=== PATIENT | female | born 1980 | race Caucasian/White ===

== ENCOUNTER 2016-12-03 21:18 | Emergency (ER) | payer MEDICAID ==
[~2016-12-03] VITALS: Ht 157.5 cm; Wt 70.0 kg
[2016-12-03 21:26] VITALS: BP 135/93; PULSE 98; RESP 18; TEMP 98; O2SAT 99
--- NOTE | 2016-12-03 21:41 | PD ---
HPI Chief Complaint: Psychiatric Symptoms Time Seen by Provider: 21:34 Travel History International Travel<30 days: No Contact w/Intl Traveler<30days: No Traveled to known affect area: No History of Present Illness HPI The patient was seen and examined in the presence of the nurse. This patient is 6-1/2 to 7 months and a frequent IV drug user. He does not have any psychiatric problem. She had a court ordered ex parte order for psychiatric evaluation and was therefore sent to [facility]. However when I found she was they said that they could not handle that and sent her to the emergency room. She has no physical complaints. She has no psychiatric complaints. She admits readily that she is a drug user and says she would like to quit for the sake of her baby. She buys Dilaudid off the street and crutches and an injects it. Denies fever. Symptoms severity is mild. No alleviating factors. Duration is the entire . She does go to a care clinic in [place]. PFSH Past Medical History ?: Social History Alcohol Use: No Tobacco Use: No Substance Use: No Review of Systems General / Constitutional: No: Fever Eyes: No: Visual changes HENT: No: Headaches Cardiovascular: No: Chest Pain or Discomfort Respiratory: No: Shortness of Breath Gastrointestinal: No: Abdominal Pain Genitourinary: No: Dysuria Musculoskeletal: No: Pain Skin: No Rash Neurologic: No: Weakness Psychiatric: Positive: Substance Abuse, No: Depression Endocrine: No: Polydipsia Hematologic/Lymphatic: No: Easy Bruising Physical Exam Narrative GENERAL: Well-nourished, well-developed patient in no apparent distress. SKIN: Focused skin assessment reveals no rash. Skin is Warm and dry. Her hands and arms are covered in track santo and nodules that are picked at HEAD: Atraumatic. Normocephalic. EYES: Pupils equal and round. No scleral icterus. No injection or drainage. ENT: No nasal bleeding or discharge. Mucous membranes pink and moist. NECK: Trachea midline. No JVD. CARDIOVASCULAR: Regular rate and rhythm. No murmur appreciated. RESPIRATORY: No accessory muscle use. Clear to auscultation. Breath sounds equal bilaterally. GASTROINTESTINAL: Abdomen soft, gravid uterus is nontender, nondistended. Hepatic and splenic margins not palpable. MUSCULOSKELETAL: No obvious deformities. No clubbing. No cyanosis. No edema. NEUROLOGICAL: Awake and alert. No obvious cranial nerve deficits. Motor grossly within normal limits. Normal speech. PSYCHIATRIC: Appropriate mood and affect; insight and judgment poor. Data Data Last Documented VS Vital Signs Date Time Temp Pulse Resp B/P Pulse Ox O2 Delivery O2 Flow Rate FiO2 12/03/16 22:31 78 12/03/16 21:26 98.0 18 135/93 99 Orders Iv Access Insert/Monitor (12/03/16 21:34) Complete Blood Count With Diff (12/03/16 21:34) Basic Metabolic Panel (Bmp) (12/03/16 21:34) Psych Screen (12/03/16 21:34) Drug Screen, Random Urine (12/03/16 21:34) Alcohol (Ethanol) (12/03/16 21:34) Heart Tones (12/03/16 21:34) Labs Laboratory Tests Test 12/03/16 21:45 White Blood Count 7.7 TH/MM3 Red Blood Count 3.77 MIL/MM3 Hemoglobin 9.9 GM/DL Hematocrit 29.8 % Mean Corpuscular Volume 79.0 FL Mean Corpuscular Hemoglobin 26.2 PG Mean Corpuscular Hemoglobin 33.1 % Concent Red Cell Distribution Width 14.1 % Platelet Count 338 TH/MM3 Mean Platelet Volume 8.4 FL Neutrophils (%) (Auto) 68.6 % Lymphocytes (%) (Auto) 21.0 % Monocytes (%) (Auto) 8.8 % Eosinophils (%) (Auto) 1.4 % Basophils (%) (Auto) 0.2 % Neutrophils # (Auto) 5.3 TH/MM3 Lymphocytes # (Auto) 1.6 TH/MM3 Monocytes # (Auto) 0.7 TH/MM3 Eosinophils # (Auto) 0.1 TH/MM3 Basophils # (Auto) 0.0 TH/MM3 CBC Comment DIFF FINAL Differential Comment Sodium Level 138 MEQ/L Potassium Level 3.7 MEQ/L Chloride Level 103 MEQ/L Carbon Dioxide Level 27.4 MEQ/L Anion Gap 8 MEQ/L Blood Urea Nitrogen 9 MG/DL Creatinine 0.53 MG/DL Estimat Glomerular Filtration 131 ML/MIN Rate Random Glucose 84 MG/DL Calcium Level 8.5 MG/DL Urine Opiates Screen POS Urine Barbiturates Screen NEG Urine Amphetamines Screen POS Urine Benzodiazepines Screen NEG Urine Cocaine Screen NEG Urine Cannabinoids Screen NEG Ethyl Alcohol Level LESS THAN 3 MG/DL MDM Medical Decision Making Medical Screen Exam Complete: Yes Emergency Medical Condition: Yes Medical Record Reviewed: Yes Differential Diagnosis Polysubstance abuse, drug use, Narrative Course I have reviewed the patient's electronic medical record. IV placed CBC shows minor anemia otherwise normal Metabolic profile is normal Alcohol level is negative Urine drug screen positive for amphetamine and opiate heart tones are 120s to 130s and regular I've ordered psychiatric screening as the patient comes in under an ex parte act. However she doesn't have any psychiatric problems. It sounds like she needs drug detox but since she is the detox Center will not take her. I don't sense any emergency that needs to be addressed tonight. This is been going on for the entirety of her and long before that. Possibly case management will be able to figure out where to refer her for detox that takes women. Patient is is medically stable as I can make her now. She is going to get her psychiatric evaluation and they will disposition her after that. We have discussed with case management. Diagnosis Primary Impression: IV drug abuse complicating Jamar De MD Dec 03, 2016 21:41
[2016-12-03 22:12] LABS: AUTOMATED NEUTROPHIL # 5.3 TH/MM3 (1.8-7.7); BASOPHIL % 0.2 % (0.0-2.0); EOSINOPHIL # 0.1 TH/MM3 (0-0.4); EOSINOPHIL % 1.4 % (0.0-4.0); HEMATOCRIT 29.8 % (35.0-46.0); HEMO FLAGS DIFF FINAL; LYMPHOCYTE # 1.6 TH/MM3 (1.0-4.8); MEAN CORPUSCULAR HEMOGLOBIN 26.2 PG (27.0-34.0); MEAN CORPUSCULAR HGB CONC 33.1 % (32.0-36.0); MONO % 8.8 % (0.0-8.0); NEUT % 68.6 % (16.0-70.0); PLATELET COUNT 338 TH/MM3 (150-450); RED BLOOD COUNT 3.77 MIL/MM3 (4.00-5.30); RED CELL DISTRIBUTION WIDTH 14.1 % (11.6-17.2); WHITE BLOOD COUNT 7.7 TH/MM3 (4.0-11.0)
[2016-12-03 22:20] LABS: AMPHETAMINE, URINE POS (NEG); BARBITURATES, URINE NEG (NEG); COCAINE, URINE NEG (NEG)
[2016-12-03 22:31] VITALS: PULSE 78
[2016-12-03 22:35] LABS: ANION GAP 8 MEQ/L (5-15); BICARBONATE 27.4 MEQ/L (21.0-32.0); BLOOD UREA NITROGEN 9 MG/DL (7-18); CHLORIDE 103 MEQ/L (98-107); GLOMERULAR FILTRATION RATE 131 ML/MIN (>89); POTASSIUM 3.7 MEQ/L (3.5-5.1); SODIUM (NA) 138 MEQ/L (136-145)
[2016-12-04 08:08] VITALS: BP 119/82; PULSE 80; RESP 19; O2SAT 99
[2016-12-04 11:41] VITALS: BP 115/82; PULSE 72; RESP 18; O2SAT 99
--- NOTE | 2016-12-04 12:56 | PD ---
History of Present Illness Chief Complaint: Psychiatric Symptoms Time Seen by Provider: 12:35 Travel History International Travel<30 Days: No Contact w/Intl Traveler<30days: No Known affected area: No Legal Status Legal Status: Ex Parte History of Present Illness: History of Present Illness HPI The patient is a 36 year old female with history of substance use disorder who is 6-1/2 to 7 months and a frequent IV drug user. She is under an ex parte order for psychiatric evaluation and was therefore sent to [facility]. However [facility] sent the patient to [facility] for psychiatric evaluation since the patient is and out of their scope of practice. Ed documentation reviewed and included here in this report " She has no physical complaints. She has no psychiatric complaints. She admits readily that she is a drug user and says she would like to quit for the sake of her baby. She buys Dilaudid off the street and crutches and an injects it. Denies fever. Symptoms severity is mild. No alleviating factors. Duration is the entire . She does go to a care clinic in [place]." Seen. Chart reviewed. Current toxicology is positive for amphetamines as well as opiates. Patient is alert, oriented x 4. Calm and cooperative. her speech is clear , logical, coherent, of normal tone and rate. There is no pressured speech. There is no indication that she is responding to internal stimuli and she denies any hallucinations. No delusions or paranoia. She denies any suicidal or homicidal ideation, academic intern or plan. She denies depression or anxiety symptoms. She admits to hx of substance abuse with preference for opiates as well as amphetamines. She has been using during her whole . Patient is aware of potential negative effects of her continued use of substances on her unborn child. She has been receiving care and verbalizes her desire to parent this child. States " This is my boy. " She has a 15 year old daughter. Patient is requesting discharge. She tells me she has contacted [facility] and according to her report they cannot refuse her admission because she is . She plans on having her mother take her there if she is discharged. Telephone call to her mother Fabiola at [phone]. Mother reports that she will not be picking her up and that she cannot return to her homeif she is discharged. Mother was under the impression that she was under a [place] Act as the patient's main dx is substance abuse. . TC to Jose Juan Koenig court liason at [facility] [phone]. Message left for him to contact [facility]. TC to Jose Juan Koenig again. Message left. I spoke with [facility] bilingual patient support caseworker Fabby xiong available resources for this patient . States no available resources for this patient. TC to Darlene at [facility]. Patient can present to detox today for evaluation today. [facility] does provide detox for patients and she just needs to present to their lobby for an evaluation but she needs to bring a copy of ultrasound with her. I have informed RN on unit re need to obtain ultrasound. Plan is to have patient transported to [facility] via [facility] transportation to facilitate her getting to [facility]. I have informed Keyonna, ED charge regarding disposition. PFSH Past Medical History Anxiety: Yes Depression: Yes ?: Psychiatric History Psychiatric History Hx Psychiatric Treatment: None reported by kendal History of Inpatient Treatment: No Guns or firearms in home: No Social History Single female. Had been living with her mother Hx Alcohol Use: No Hx Tobacco Use: No Hx Substance Use: No Substance Use Type: Amphetamines-Stimulants, Synth Opiates-Pain Pills Hx of Substance Use Treatment: Yes ([facility], drug court.) Family Psychiatric History Unknown Review of Systems Except as stated in HPI: all other systems reviewed are Neg Exam Alert: Yes [place]: Person (ox4) Mood: Calm Affect: Appropriate Speech: Clear, Logical Eye Contact: Normal Memory Intact: Comment (No impairmetn) Hallucinations: Other (negative) Delusions: No Suicidal: Ideation (denies any) Homicidal: Ideation (denies any) Insight/Judgement Poor. Poor [facility] Medical Decision Making Medical Record Reviewed: Yes Assessment/Plan 36 year old female who is currently and has a hx of substance use disorder. Has been abusing opiates as well as amphetamines during her and presents today under an ex parte. The patient does not meet criteria for inpatient psychiatric treatment. She needs detoxification services which we do not provide here at [facility]. I have contacted [facility] and patient needs to present self there for evaluation. Orders Iv Access Insert/Monitor (12/03/16 21:34) Complete Blood Count With Diff (12/03/16 21:34) Basic Metabolic Panel (Bmp) (12/03/16 21:34) Psych Screen (12/03/16 21:34) Drug Screen, Random Urine (12/03/16 21:34) Alcohol (Ethanol) (12/03/16 21:34) Heart Tones (12/03/16 21:34) Diet Regular Basic (12/04/16 Lunch) Results Vital Signs Date Time Temp Pulse Resp B/P Pulse Ox O2 Delivery O2 Flow Rate FiO2 12/04/16 11:41 72 18 115/82 99 Room Air 12/04/16 08:08 80 19 119/82 99 Room Air 12/03/16 22:31 78 12/03/16 21:26 98.0 98 18 135/93 99 Laboratory Tests Test 12/03/16 21:45 White Blood Count 7.7 Red Blood Count 3.77 Hemoglobin 9.9 Hematocrit 29.8 Mean Corpuscular Volume 79.0 Mean Corpuscular Hemoglobin 26.2 Mean Corpuscular Hemoglobin 33.1 Concent Red Cell Distribution Width 14.1 Platelet Count 338 Mean Platelet Volume 8.4 Neutrophils (%) (Auto) 68.6 Lymphocytes (%) (Auto) 21.0 Monocytes (%) (Auto) 8.8 Eosinophils (%) (Auto) 1.4 Basophils (%) (Auto) 0.2 Neutrophils # (Auto) 5.3 Lymphocytes # (Auto) 1.6 Monocytes # (Auto) 0.7 Eosinophils # (Auto) 0.1 Basophils # (Auto) 0.0 CBC Comment DIFF FINAL Differential Comment Sodium Level 138 Potassium Level 3.7 Chloride Level 103 Carbon Dioxide Level 27.4 Anion Gap 8 Blood Urea Nitrogen 9 Creatinine 0.53 Estimat Glomerular Filtration 131 Rate Random Glucose 84 Calcium Level 8.5 Urine Opiates Screen POS Urine Barbiturates Screen NEG Urine Amphetamines Screen POS Urine Benzodiazepines Screen NEG Urine Cocaine Screen NEG Urine Cannabinoids Screen NEG Ethyl Alcohol Level LESS THAN 3 Diagnosis Primary Impression: Substance abuse Additional Impression: IV drug abuse complicating Psychiatrically Cleared: Yes Problem Qualifiers Aspen Jernigan Dec 04, 2016 12:56
== END 2016-12-04 16:00 ==
LOC: NEPC 21:18
DX: O99.320 Drug use complicating pregnancy, unspecified trimester (principal)
CPT/HCPCS: 80048; 80307; 85025; 99283

== ENCOUNTER 2016-12-07 18:17 | Emergency (ER) | payer MEDICAID ==
[~2016-12-07] VITALS: Ht 157.5 cm; Wt 68.0 kg
--- NOTE | 2016-12-07 19:40 | PD ---
HPI Chief Complaint viability Date Seen: Dec 07, 2016 Time Seen: 19:36 Travel History International Travel<30 Days: No Contact w/Intl Traveler<30Days: No Known Affected Area: No History of Present Illness HPI 36-year-old who is at 33 weeks gestation who is here with a counselor in preparation to enter [facility] for substance abuse. Patient uses IV Dilaudid and has abuse this medication throughout her . Patient is seen at a clinic and they'll time and plans to continue her care there. He has no complications of . Para: 1 : 3 History Past Medical History Medical History: Denies Significant Hx Obstetric History Obstetric History Spontaneous vaginal delivery Past Surgical History Surgical History: No Previous Surgery Family History Family History: Negative Social History Alcohol Use: No Tobacco Use: No Substance Abuse: Yes Review of Systems Except as stated in HPI: all other systems reviewed are Neg Physical Exam Narrative GENERAL: Well-nourished, well-developed patient. SKIN: Warm and dry. HEAD: Normocephalic and atraumatic. ABDOMEN/GI: Abdomen soft, non-tender, bowel sounds present, no rebound, no guarding Gravid to [33-] weeks size Fundal Height: [-] GENITOURINARY: Deferred External Genitalia: intact and normal in appearance BUS glands: [-] Cervix: [-] Dilatation: [-] Effacement: [-] Station: [-] Presentation: [-] Membranes: [intact or ruptured] Uterine Contractions: [-] FHT's: Category: [1-] Baseline: [140-] Reactive: [-Reactive] Variability: [Reactive-] Decels: [Absent-] EXTREMITIES: No cyanosis or edema. BACK: Nontender without obvious deformity. No CVA tenderness. NEUROLOGICAL: Awake and alert. Motor and sensory grossly within normal limits. Five out of 5 muscle strength in all muscle groups. Normal speech. Data Data Vital Signs Reviewed: Yes MDM Plan 36-year-old who is at 33 weeks gestation Category 1 heart rate tracing IV substance abuse going to [facility] Diagnosis Diagnosis: Primary Impression: Substance abuse affecting in third trimester, antepartum Additional Impression: 33 weeks gestation of Disposition: DISCHARGE HOME Christina Gamez MD Dec 07, 2016 19:40
[2016-12-28] MEDS ORDERED: CITA10TA4 PO ×2 (10:47→11:09)
[2016-12-28] MEDS ORDERED: FAMO20TA2 PO ×2 (10:47→11:09)
[2016-12-28] MEDS ORDERED: PROM25TA10 PO ×2 (10:47→11:09)
[2016-12-28] MEDS ORDERED: CITA20TA4 PO ×2 (10:47→11:09)
[2016-12-28] MEDS ORDERED: PREN1CAP20 PO ×2 (10:49→11:10)
== END 2016-12-07 20:14 | disposition home or self-care (01) ==
LOC: HOBED 18:17
DX: O26.893 Other specified pregnancy related conditions, third trimester (principal); F19.10 Other psychoactive substance abuse, uncomplicated; Z3A.33 33 weeks gestation of pregnancy
CPT/HCPCS: 99281

== ENCOUNTER 2016-12-09 00:57 | Emergency (ER) | payer MEDICAID ==
[~2016-12-09] VITALS: Ht 167.6 cm; Wt 70.0 kg
[2016-12-09 01:15] VITALS: BP 118/69; PULSE 80; RESP 20; TEMP 97.6; O2SAT 99
[2016-12-09] MEDS ORDERED: SODIUM CHLORIDE 0.9% FLUSH 10 ML FLUSH IVF PRN (01:30)
[2016-12-09] MEDS ORDERED: SODIUM CHLOR 0.9% 1000 ML INJ 1,000 ML IV ONE (01:30)
[2016-12-09] MEDS ORDERED: ONDANSETRON HCL 4 MG/2 ML VIAL IV PUSH ONE (01:30)
[2016-12-09 01:49] VITALS: BP 118/69; PULSE 80; RESP 20; TEMP 97.6; O2SAT 99
[2016-12-09 01:58] LABS: AUTOMATED NEUTROPHIL # 6.6 TH/MM3 (1.8-7.7); BASOPHIL % 0.5 % (0.0-2.0); EOSINOPHIL % 0.3 % (0.0-4.0); HEMATOCRIT 35.2 % (35.0-46.0); HEMO FLAGS DIFF FINAL; LYMPH % 21.2 % (9.0-44.0); MEAN CELL VOLUME 77.8 FL (80.0-100.0); MEAN CORPUSCULAR HEMOGLOBIN 25.6 PG (27.0-34.0); MEAN CORPUSCULAR HGB CONC 32.9 % (32.0-36.0); PLATELET COUNT 417 TH/MM3 (150-450); RED BLOOD COUNT 4.52 MIL/MM3 (4.00-5.30); RED CELL DISTRIBUTION WIDTH 14.4 % (11.6-17.2); WHITE BLOOD COUNT 9.4 TH/MM3 (4.0-11.0)
[2016-12-09 02:12] VITALS: BP 112/74; PULSE 78; RESP 18; O2SAT 99
[2016-12-09 02:42] LABS: ALT (GPT) 61 U/L (10-53); ANION GAP 14 MEQ/L (5-15); AST (GOT) 64 U/L (15-37); BICARBONATE 22.7 MEQ/L (21.0-32.0); BLOOD UREA NITROGEN 7 MG/DL (7-18); CHLORIDE 103 MEQ/L (98-107); GLOMERULAR FILTRATION RATE 108 ML/MIN (>89); POTASSIUM 3.6 MEQ/L (3.5-5.1); SODIUM (NA) 140 MEQ/L (136-145)
[2016-12-09 02:44] LABS: ALKALINE PHOSPHATASE 139 U/L (45-117); TOTAL BILIRUBIN ADULT 1.4 MG/DL (0.2-1.0)
--- NOTE | 2016-12-09 02:44 | PD ---
HPI Chief Complaint: Medical Clearance Time Seen by Provider: 02:34 Travel History International Travel<30 days: No Contact w/Intl Traveler<30days: No Traveled to known affect area: No History of Present Illness HPI PT IS 33 WEEKS GESTATION, WAS AT THE [facility] GETTING DETOX WAS SENT HERE FOR POSSIBLE WITHDRAWAL SYMPTOMS, PER THE [facility] STAFF IF PT IS MEDICALLY CLEARED SHE WILL BE ACCEPTED BY THE [facility] AGAIN....PT DENIES FEELING NERVOUS/PALPITATIONS/ TREMBLING AT THIS TIME ONLY C/O NAUSEA WITHOUT ANY BOWERS/CP/ABD PAIN/VAG BLEED/V/D AT THIS TIME PFSH Past Medical History Medical History: Denies Significant Hx Anxiety: Yes Depression: Yes Diminished Hearing: No ?: LMP: 02/28/2016 : 3 Para: 1 Miscarriage: 1 Past Surgical History Surgical History: No Previous Surgery Social History Alcohol Use: No Tobacco Use: No Substance Use: No (past IV drug use. Dilaudid 2 days clean) Allergies-Medications (Allergen,Severity, Reaction): Coded Allergies: No Known Allergies (Unverified , 12/09/16) Reported Meds & Prescriptions Reported Meds & Active Scripts Active No Active Prescriptions or Reported Medications Review of Systems Except as stated in HPI: all other systems reviewed are Neg Gastrointestinal: Positive: Nausea Physical Exam Narrative GENERAL: SKIN: Warm and dry. HEAD: Atraumatic. Normocephalic. EYES: Pupils equal and round. No scleral icterus. No injection or drainage. ENT: No nasal bleeding or discharge. Mucous membranes pink and moist. NECK: Trachea midline. No JVD. CARDIOVASCULAR: Regular rate and rhythm. RESPIRATORY: No accessory muscle use. Clear to auscultation. Breath sounds equal bilaterally. GASTROINTESTINAL: Abdomen soft, GRAVID AND C/W >30WEEKS GEST. HIGH MUSCULOSKELETAL: Extremities without clubbing, cyanosis, or edema. No obvious deformities. NEUROLOGICAL: Awake and alert. No obvious cranial nerve deficits. Motor grossly within normal limits. Five out of 5 muscle strength in the arms and legs. Normal speech. PSYCHIATRIC: Appropriate mood. Data Data Last Documented VS Vital Signs Date Time Temp Pulse Resp B/P Pulse Ox O2 Delivery O2 Flow Rate FiO2 12/09/16 02:12 78 18 112/74 99 Room Air 12/09/16 01:49 97.6 Orders Complete Blood Count With Diff (12/09/16 01:18) Comprehensive Metabolic Panel (12/09/16 01:18) Urinalysis - C+S If Indicated (12/09/16 01:18) Iv Access Insert/Monitor (12/09/16 01:18) Psych Screen (12/09/16 01:18) Sodium Chloride 0.9% Flush (Ns Flush) (12/09/16 01:30) Drug Screen, Random Urine (12/09/16:18) Alcohol (Ethanol) (12/09/16 01:18) Salicylates (Aspirin) (12/09/16 01:18) Tylenol (Acetaminophen) (12/09/16 01:18) Sodium Chlor 0.9% 1000 Ml Inj (Ns 1000 M (12/09/16 01:30) Ondansetron Inj (Zofran Inj) (12/09/16 01:30) Metoclopramide Inj (Reglan Inj) (12/09/16 02:45) Labs Laboratory Tests Test 12/09/16 01:40 White Blood Count 9.4 TH/MM3 Red Blood Count 4.52 MIL/MM3 Hemoglobin 11.6 GM/DL Hematocrit 35.2 % Mean Corpuscular Volume 77.8 FL Mean Corpuscular Hemoglobin 25.6 PG Mean Corpuscular Hemoglobin 32.9 % Concent Red Cell Distribution Width 14.4 % Platelet Count 417 TH/MM3 Mean Platelet Volume 8.3 FL Neutrophils (%) (Auto) 70.0 % Lymphocytes (%) (Auto) 21.2 % Monocytes (%) (Auto) 8.0 % Eosinophils (%) (Auto) 0.3 % Basophils (%) (Auto) 0.5 % Neutrophils # (Auto) 6.6 TH/MM3 Lymphocytes # (Auto) 2.0 TH/MM3 Monocytes # (Auto) 0.8 TH/MM3 Eosinophils # (Auto) 0.0 TH/MM3 Basophils # (Auto) 0.0 TH/MM3 CBC Comment DIFF FINAL Differential Comment Sodium Level 140 MEQ/L Potassium Level 3.6 MEQ/L Chloride Level 103 MEQ/L Carbon Dioxide Level 22.7 MEQ/L Anion Gap 14 MEQ/L Blood Urea Nitrogen 7 MG/DL Creatinine 0.63 MG/DL Estimat Glomerular Filtration 108 ML/MIN Rate Random Glucose 90 MG/DL Calcium Level 9.2 MG/DL Total Bilirubin 1.4 MG/DL Aspartate Amino Transf 64 U/L (AST/SGOT) Alanine Aminotransferase 61 U/L (ALT/SGPT) Alkaline Phosphatase 139 U/L Total Protein 7.9 GM/DL Albumin 2.5 GM/DL Salicylates Level LESS THAN 1.7 MG/DL Acetaminophen Level LESS THAN 2.0 MCG/ML Ethyl Alcohol Level LESS THAN 3 MG/DL MDM Medical Decision Making Medical Screen Exam Complete: Yes Emergency Medical Condition: Yes Medical Record Reviewed: Yes Differential Diagnosis ELECTROLYTE ABNL V MED CLEARANCE Narrative Course CURRENTLY PATIENT IS NOT TACHYCARDIC/TACHYPNEIC/ NOR ALTERED MENTAL STATUS VSS, PT DOES NOT EXHIBIT E/O WITHDRAWAL AND IS RESTING/SLEEPING WITHOUT DIFFICULTY. WILL AWAIT MED CLEARANCE WORKUP IF NEGATIVE WILL RELEASE TO THE [facility] TO CONTINUE DETOX PROCESS. Diagnosis Primary Impression: MEDICAL CLEARANCE FOR THE [facility] Patient Instructions: General Instructions Scripts No Active Prescriptions or Reported Meds Disposition: 70 TRANSFER TO OTHER FACILITY Condition: Stable (TRANSFER TO THE [facility] FOR CONTINUED DETOX) David Potter MD Dec 09, 2016 02:43
[2016-12-09] MEDS ORDERED: METOCLOPRAMIDE HCL 10 MG/2 ML VIAL IV PUSH ONE (02:45)
[2016-12-09 02:46] LABS: ACETAMINOPHEN LESS THAN 2.0 MCG/ML (10.0-30.0)
[2016-12-28] MEDS ORDERED: CITA10TA4 PO ×2 (10:47→11:09)
[2016-12-28] MEDS ORDERED: FAMO20TA2 PO ×2 (10:47→11:09)
[2016-12-28] MEDS ORDERED: CITA20TA4 PO ×2 (10:47→11:09)
[2016-12-28] MEDS ORDERED: PROM25TA10 PO ×2 (10:47→11:09)
[2016-12-28] MEDS ORDERED: PREN1CAP20 PO ×2 (10:49→11:10)
== END 2016-12-09 05:18 | disposition short-term general hospital (02) ==
LOC: NEPC 00:57
DX: O99.323 Drug use complicating pregnancy, third trimester (principal); F41.9 Anxiety disorder, unspecified; F32.9 Major depressive disorder, single episode, unspecified; Z3A.33 33 weeks gestation of pregnancy
CPT/HCPCS: 80053; 80307; 85025; 96361; 96374; 96375; J2405; J2765; J7030

== ENCOUNTER 2016-12-09 12:26 | Inpatient (IN) | payer MEDICAID ==
[2016-12-09] VITALS (60 sets, daily range): BP systolic 131–139; BP diastolic 80–86; PULSE 61–90; RESP 20–27; TEMP 98.1–99.1
[2016-12-09] MEDS: SODIUM CHLORIDE 0.9% FLUSH 10 ML FLUSH IV FLUSH SCH ×2 (13:15→21:00)
[2016-12-09] MEDS ORDERED: SODIUM CHLORIDE 0.9% FLUSH 10 ML FLUSH IV FLUSH PRN (13:15)
--- NOTE | 2016-12-09 13:35 | HHI.HP ---
History & Physical H&P HPI Travel History International Travel<30 Days: No Contact w/Intl Traveler<30Days: No Known Affected Area: No History of Present Illness HPI This patient is a 36-year-old 2 para 1001 EDC is January 25, 2017 presently at 33 weeks and 2 days patient is presently a resident of the [facility] she was seen earlier in the emergency room for medical clearance for that program at that time she was having nausea and vomiting workup was done patient evaluated and she was discharged home. She returns with persistent nausea vomiting and now with watery diarrhea No rupture of membranes no vaginal bleeding the baby is active no contractions no pressure no cramping in her lower abdomen States the nausea and vomiting is persistent however she has not had any vomiting since being in the room over the past 20-30 minutes no episodes of diarrhea. Her care is in the [place] area with a Dr. Camejo however is moving to this area considering transfer of care History (Limited) History Past Medical History Narrative Medical No known drug allergies history of hypothyroidism no medication Obstetric History Obstetric History First baby born 2001 female weight 7 lbs. 6 oz. vaginal delivery uncomplicated Past Surgical History Surgical History: No Previous Surgery Family History Family History: Negative Social History Alcohol Use: No Tobacco Use: No Substance Abuse: Yes (drug of choice is IV Dilaudid over the past year and has used meth amphetamines she denies cocaine para 1 marijuana etc.) Allergies-Medications Allergies-Medications (Allergen,Severity, Reaction): Coded Allergies: No Known Allergies (Unverified , 12/09/16) Home Meds No Active Prescriptions or Reported Meds ROS Review of Systems General / Constitutional: Chills Gastrointestinal: Nausea, Vomiting, Diarrhea, Loss of Appetite Musculoskeletal: Cramping Psychiatric: Depression (by history) Physical Exam Physical Exam Narrative GENERAL: Well-nourished, well-developed patient. SKIN: Warm and dry. HEAD: Normocephalic and atraumatic. EYES: No scleral icterus. No injection or drainage. ENT: No nasal drainage noted. Mucous membranes pink. Airway patent. NECK: Supple, trachea midline. No JVD. CARDIOVASCULAR: Regular rate and rhythm without murmurs, gallops, or rubs. RESPIRATORY: Breath sounds equal bilaterally. No accessory muscle use. BREASTS: Bilateral exam showed no masses , no retractions, no nipple discharge. ABDOMEN/GI: Abdomen soft, non-tender, bowel sounds present, no rebound, no guarding Gravid to [-] weeks size Fundal Height: [-] GENITOURINARY: External Genitalia: intact and normal in appearance BUS glands: [-] Cervix: [-] Dilatation: [-] Effacement: [-] Station: [-] Presentation: [-] Membranes: [intact or ruptured] Uterine Contractions: [-] FHT's: Category: [-] Baseline: [-] Reactive: [-] Variability: [-] Decels: [-] EXTREMITIES: No cyanosis or edema. BACK: Nontender without obvious deformity. No CVA tenderness. NEUROLOGICAL: Awake and alert. Motor and sensory grossly within normal limits. Five out of 5 muscle strength in all muscle groups. Normal speech. Data Data Data Vital Signs Reviewed: Yes (blood pressures 121/83 temperature is 98.7 respiration 22 and pulse is 88) Orders Ob (2e) Additional Admit Info (12/09/16 13:14) Place In Observation (12/09/16 ) Diet Liquid (12/09/16 Lunch) Vital Signs (Adult) [id number] AWAKE (12/09/16 13:15) Heart (12/09/16 13:15) Activity Bed Rest With Brp (12/09/16 13:15) Complete Blood Count With Diff (12/09/16 13:15) Urinalysis - C+S If Indicated (12/09/16 13:15) Lactated Ringer's 1000 Ml Inj (Lr 1000 M (12/09/16 13:15) Sodium Chloride 0.9% Flush (Ns Flush) (12/09/16 13:15) Sodium Chloride 0.9% Flush (Ns Flush) (12/09/16 13:15) Ob/Psych Drug Screen, Urine (12/09/16 13:15) Comprehensive Metabolic Panel (12/09/16 13:15) Thyroid Stimulating Hormone (12/09/16 13:15) Hydroxyzine Pamoate (Vistaril) (12/09/16 13:15) Clonidine (Catapres) (12/09/16 13:15) Gabapentin (Neurontin) (12/09/16 18:00) Us Ob Pelvis >14 Wks Fetus (12/09/16 ) MDM MDM Medical Record Reviewed: Yes (records from earlier ultrasound reviewed) Interpretation(s) Intrauterine at 33 weeks and 2 days Not in labor Nausea vomiting and diarrhea Most likely secondary to drug withdrawal Advanced maternal age Mild dehydration History of hypothyroidism Plan Admit External monitoring CBC, CMP, lipase amylase, urinalysis, TSH Urine drug screen IV fluid hydration Vistaril 50 mg by mouth every 4 hours Clonidine 0.1 mg every 6 hours Gabapentin 400 mg by mouth 3 times a day Ultrasound with OB diagnostics for growth Will observe over the next 24 hours If improved will discharge back to the [facility] program in the a.m. Scripts No Active Prescriptions or Reported Meds Antonina Cosby MD Dec 09, 2016 13:34 Antonina Cosby MD Dec 09, 2016 13:35
[2016-12-09 15:53] LABS: BLOOD, URINE NEG (NEG); COMMENT (UR) CULT NOT INDICATED; CULTURE IF INDICATED CULT NOT INDICATED; GLUCOSE,URINE NEG (NEG); KETONE, URINE 150 mg/dL (NEG); MUCUS URINE FEW /lpf (OCC); NITRITE,URINE NEG (NEG); SQUAMOUS EPITHELIAL CELL URINE 1 /hpf (0-5); TRANSITIONAL EPI CELLS, URINE 2 /hpf; URINE COLOR DARK-YELLOW (YELLW/STRAW)
[2016-12-09 15:57] LABS: AMPHETAMINE, URINE NEG (NEG); BARBITURATES, URINE NEG (NEG)
[2016-12-09 16:10] LABS: COCAINE, URINE POS (NEG)
[2016-12-09 17:28] LABS: AUTOMATED NEUTROPHIL # 5.4 TH/MM3 (1.8-7.7); BASOPHIL % 0.3 % (0.0-2.0); EOSINOPHIL % 0.3 % (0.0-4.0); HEMATOCRIT 31.4 % (35.0-46.0); HEMO FLAGS DIFF FINAL; LYMPH % 24.7 % (9.0-44.0); LYMPHOCYTE # 2.1 TH/MM3 (1.0-4.8); MEAN CELL VOLUME 79.7 FL (80.0-100.0); MEAN CORPUSCULAR HEMOGLOBIN 25.6 PG (27.0-34.0); MEAN CORPUSCULAR HGB CONC 32.1 % (32.0-36.0); MONO % 10.4 % (0.0-8.0); NEUT % 64.3 % (16.0-70.0); PLATELET COUNT 365 TH/MM3 (150-450); RED BLOOD COUNT 3.93 MIL/MM3 (4.00-5.30); RED CELL DISTRIBUTION WIDTH 14.2 % (11.6-17.2); WHITE BLOOD COUNT 8.3 TH/MM3 (4.0-11.0)
[2016-12-09 17:48] LABS: ALT (GPT) 55 U/L (10-53); ANION GAP 9 MEQ/L (5-15); AST (GOT) 51 U/L (15-37); BICARBONATE 25.6 MEQ/L (21.0-32.0); BLOOD UREA NITROGEN 8 MG/DL (7-18); CHLORIDE 102 MEQ/L (98-107); GLOMERULAR FILTRATION RATE 98 ML/MIN (>89); POTASSIUM 3.6 MEQ/L (3.5-5.1); SODIUM (NA) 137 MEQ/L (136-145)
[2016-12-09] MEDS: LACTATED RINGER'S 1000 ML INJ 1,000 ML IV SCH (17:54)
[2016-12-09] MEDS: GABAPENTIN 400 MG CAP PO SCH (17:54)
[2016-12-09 17:58] LABS: ALKALINE PHOSPHATASE 111 U/L (45-117); TOTAL BILIRUBIN ADULT 1.3 MG/DL (0.2-1.0)
[2016-12-09] MEDS: cloNIDine HCL 0.1 MG TAB PO PRN (20:23)
[2016-12-09] MEDS ORDERED: ONDANSETRON HCL 4 MG/2 ML VIAL IV PUSH PRN (22:15)
[2016-12-10] VITALS (26 sets, daily range): BP systolic 114–126; BP diastolic 63–75; PULSE 60–84; RESP 20–24; TEMP 97.7–98.4; O2SAT 100
[2016-12-10] MEDS: CALCIUM CARBONATE 500 MG CHEWABLE TAB CHEW PRN ×9 (00:11→22:30)
[2016-12-10] MEDS: cloNIDine HCL 0.1 MG TAB PO PRN ×3 (02:28→19:59)
--- NOTE | 2016-12-10 07:06 | PD.OB.ANTE ---
Subjective Interval History Patient continues to have pain "all over" and had an episode of food-colored vomiting at midnight. She denies nausea this morning and wants to try breakfast. Antepartum ROS: Reports: movement normal, Denies: New complaints, Loss of fluid, Vaginal bleeding, Contractions Objective Vital Signs Vital Signs Date Time Temp Pulse Resp B/P Pulse Ox O2 Delivery O2 Flow Rate FiO2 12/10/16 02:36 20 12/10/16 02:35 70 12/10/16 02:33 98.4 20 12/10/16 02:32 68 126/75 12/10/16 02:30 70 12/10/16 02:25 69 12/10/16 02:20 73 12/10/16 02:15 74 12/10/16 02:10 77 12/10/16 02:05 75 12/10/16 02:00 84 12/09/16 22:55 63 12/09/16 22:50 61 12/09/16 22:45 80 12/09/16 22:40 64 12/09/16 22:35 72 12/09/16 22:30 64 12/09/16 22:25 75 12/09/16 22:20 79 12/09/16 22:20 20 12/09/16 22:18 72 133/86 12/09/16 22:05 79 12/09/16 22:00 64 12/09/16 19:24 98.1 12/09/16 18:40 69 12/09/16 18:40 69 12/09/16 18:35 76 12/09/16 18:35 76 12/09/16 18:30 77 12/09/16 18:30 78 12/09/16 18:25 76 12/09/16 18:25 79 12/09/16 18:20 74 12/09/16 18:20 76 12/09/16 18:15 78 12/09/16 18:15 77 12/09/16 18:10 77 12/09/16 18:00 78 12/09/16 18:00 78 12/09/16 17:55 73 12/09/16 17:55 71 12/09/16 17:53 24 12/09/16 17:53 71 139/85 12/09/16 17:52 98.6 12/09/16 17:50 78 12/09/16 17:50 75 12/09/16 17:45 80 12/09/16 17:45 81 12/09/16 17:40 77 12/09/16 17:35 85 12/09/16 17:35 84 12/09/16 17:30 82 12/09/16 17:30 81 12/09/16 17:25 77 12/09/16 17:25 78 12/09/16 17:20 78 12/09/16 17:20 78 12/09/16 17:15 77 12/09/16 17:15 76 12/09/16 17:10 76 12/09/16 17:10 70 12/09/16 17:05 71 12/09/16 17:05 70 12/09/16 17:00 73 12/09/16 17:00 74 12/09/16 16:55 81 12/09/16 16:55 81 12/09/16 16:50 80 12/09/16 16:50 80 12/09/16 16:45 66 12/09/16 16:45 68 12/09/16 16:40 62 12/09/16 16:40 62 12/09/16 16:38 99.1 12/09/16 16:37 27 12/09/16 16:35 70 135/80 12/09/16 16:35 65 12/09/16 16:30 86 12/09/16 16:15 78 12/09/16 16:10 81 12/09/16 16:05 82 12/09/16 16:00 83 12/09/16 15:55 80 12/09/16 15:50 80 12/09/16 15:45 79 12/09/16 15:40 79 12/09/16 15:35 87 12/09/16 15:30 80 12/09/16 15:25 78 12/09/16 15:20 87 12/09/16 14:40 75 12/09/16 14:39 20 12/09/16 14:38 98.6 12/09/16 14:38 76 131/85 12/09/16 14:35 75 12/09/16 14:30 81 12/09/16 13:40 90 Lab & Micro Results Test 12/09/16 12/09/16 14:23 17:07 Urine Color DARK-YELLOW Urine Turbidity HAZY Urine pH 7.0 Urine Specific Braggs 1.030 Urine Protein 30 mg/dL Urine Glucose (UA) NEG mg/dL Urine Ketones 150 mg/dL Urine Occult Blood NEG Urine Nitrite NEG Urine Bilirubin SMALL Urine Urobilinogen 4.0 MG/DL Urine Leukocyte Esterase TRACE Urine WBC 2 /hpf Urine Squamous Epithelial 1 /hpf Cells Urine Transitional Epithelial 2 /hpf Cells Urine Mucus FEW /lpf Microscopic Urinalysis Comment CULT NOT INDICATED Urine Opiates Screen NEG Urine Barbiturates Screen NEG Urine Amphetamines Screen NEG Urine Benzodiazepines Screen NEG Urine Cocaine Screen POS Urine Cannabinoids Screen NEG White Blood Count 8.3 TH/MM3 Red Blood Count 3.93 MIL/MM3 Hemoglobin 10.1 GM/DL Hematocrit 31.4 % Mean Corpuscular Volume 79.7 FL Mean Corpuscular Hemoglobin 25.6 PG Mean Corpuscular Hemoglobin 32.1 % Concent Red Cell Distribution Width 14.2 % Platelet Count 365 TH/MM3 Mean Platelet Volume 8.0 FL Neutrophils (%) (Auto) 64.3 % Lymphocytes (%) (Auto) 24.7 % Monocytes (%) (Auto) 10.4 % Eosinophils (%) (Auto) 0.3 % Basophils (%) (Auto) 0.3 % Neutrophils # (Auto) 5.4 TH/MM3 Lymphocytes # (Auto) 2.1 TH/MM3 Monocytes # (Auto) 0.9 TH/MM3 Eosinophils # (Auto) 0.0 TH/MM3 Basophils # (Auto) 0.0 TH/MM3 CBC Comment DIFF FINAL Differential Comment Sodium Level 137 MEQ/L Potassium Level 3.6 MEQ/L Chloride Level 102 MEQ/L Carbon Dioxide Level 25.6 MEQ/L Anion Gap 9 MEQ/L Blood Urea Nitrogen 8 MG/DL Creatinine 0.68 MG/DL Estimat Glomerular Filtration 98 ML/MIN Rate Random Glucose 80 MG/DL Calcium Level 8.5 MG/DL Total Bilirubin 1.3 MG/DL Aspartate Amino Transf 51 U/L (AST/SGOT) Alanine Aminotransferase 55 U/L (ALT/SGPT) Alkaline Phosphatase 111 U/L Total Protein 6.7 GM/DL Albumin 2.0 GM/DL Thyroid Stimulating Hormone 1.040 uIU/ML 3rd Gen Physical Exam GENERAL: Well-nourished, well-developed female lying in bed resting. CARDIOVASCULAR: Regular rate and rhythm without murmurs, gallops, or rubs. RESPIRATORY: Breath sounds equal bilaterally. No accessory muscle use. ABDOMEN/GI: Abdomen soft, non-tender. Fundus palpable above umbilicus, non- tender. CV: RRR, no murmurs RESP: lungs clear to auscultation GENITOURINARY: External Genitalia: deferred Uterine Contractions: absent FHT's: Category: 1 Baseline:135 Reactive:y to 150 Variability: mod Decels: absent EXTREMITIES: No cyanosis or edema, non-tender, without signs of DVT. Assessment and Plan Problem List: (1) 33 weeks gestation of Status: Acute (2) Substance abuse Status: Acute (3) Substance abuse affecting in third trimester, antepartum Status: Acute (4) IV drug abuse complicating Status: Acute Assessment and Plan ASSESSMENT: 36 yo with intrauterine at 33 weeks and 3/7 days today Admitted for medical monitoring of substance withdrawal UDS + cocaine Not in labor Nausea vomiting and diarrhea improving Most likely secondary to drug withdrawal History of hypothyroidism Ultrasound with OB diagnostics for growth 12/09 - EDC 01/25/2017, AGA at 41% ile, normal EDVIN, BPP /8, BREECH, anterior grade 2-3 placenta, no previa. PLAN: IVF rehydration since admission Advancing diet to regular today Continue external monitoring CBC, CMP, urinalysis, TSH - mild anemia, mild elevation of bilirubin, mildly elevated liver enzyme. TSH wnl Vistaril 50 mg by mouth every 4 hours Clonidine 0.1 mg every 6 hours Gabapentin 400 mg by mouth 3 times a day If tolerating diet, will discharge to [facility] Discussed with Dr. Villafuerte, attending, and Dr. Espinoza, PGY2 Marlen Taylor MD R1 Dec 10, 2016 07:06
[2016-12-10] MEDS ORDERED: TERBUTALINE INJ 1 MG/ML AMP SQ ONE (08:30)
--- NOTE | 2016-12-10 08:54 | HHI.PR ---
Addendum to Inpatient Note Addendum Reason: Additional Documentation Additional Information ADDENDUM Patient was noted to have CTX on monitor q2 min for approximately 20 min starting at approx 7:45SM. Patient did not feel the contractions. She has eaten some breakfast and notes having continued diarrhea this morning. Last vomiting was midnight. CTX resolved spontaneously at that time. Cervical exam was performed given CTX: cervix is closed, thick, midposition, medium consistency, and head is high. Patient will be given terbutaline 0.25mg x 1 subcutaneous to calm uterus. CTX likely related to dehydration vs withdrawal. Bolus LR and continue IVF at maintenance rate give diarrhea. Will give Immodium PRN for diarrhea. Discussed with Dr. Villafuerte, attending and Dr. Espinoza, PGY2. Marlen Taylor MD R1 Dec 10, 2016 08:54
[2016-12-10] MEDS ORDERED: LOPERAMIDE HCL 2 MG CAP PO PRN (09:00)
[2016-12-10] MEDS: SODIUM CHLORIDE 0.9% FLUSH 10 ML FLUSH IV FLUSH SCH ×2 (09:00→22:30)
[2016-12-10] MEDS ORDERED: LACTATED RINGER'S 1000 ML INJ 1,000 ML IV ONE (09:00)
[2016-12-10] MEDS: LACTATED RINGER'S 1000 ML INJ 1,000 ML IV SCH ×3 (09:04→19:15)
[2016-12-10] MEDS: GABAPENTIN 400 MG CAP PO SCH ×3 (09:04→17:30)
--- NOTE | 2016-12-10 11:45 | PD.PN.STU ---
Subjective Remarks consult requested for patient do to history of opioid addiction, currently being followed at [facility]. She has been counselled on transitioning medications to prepare her to move to [facility] under march act. She is very irritable and anxious but has good understanding of the necessity for this process. Objective Vitals Vital Signs Date Time Temp Pulse Resp B/P Pulse Ox O2 Delivery O2 Flow Rate FiO2 12/10/16 07:30 97.7 71 20 12/10/16 07:26 64 124/75 12/10/16 07:25 64 12/10/16 07:20 67 12/10/16 07:15 68 12/10/16 07:10 60 12/10/16 07:05 65 12/10/16 07:00 65 12/10/16 02:36 20 12/10/16 02:35 70 12/10/16 02:33 98.4 20 12/10/16 02:32 68 126/75 12/10/16 02:30 70 12/10/16 02:25 69 12/10/16 02:20 73 12/10/16 02:15 74 12/10/16 02:10 77 12/10/16 02:05 75 12/10/16 02:00 84 12/09/16 22:55 63 12/09/16 22:50 61 12/09/16 22:45 80 12/09/16 22:40 64 12/09/16 22:35 72 12/09/16 22:30 64 12/09/16 22:25 75 12/09/16 22:20 79 12/09/16 22:20 20 12/09/16 22:18 72 133/86 12/09/16 22:05 79 12/09/16 22:00 64 12/09/16 19:24 98.1 12/09/16 18:40 69 12/09/16 18:40 69 12/09/16 18:35 76 12/09/16 18:35 76 12/09/16 18:30 77 12/09/16 18:30 78 12/09/16 18:25 76 12/09/16 18:25 79 12/09/16 18:20 74 12/09/16 18:20 76 12/09/16 18:15 78 12/09/16 18:15 77 12/09/16 18:10 77 12/09/16 18:00 78 12/09/16 18:00 78 12/09/16 17:55 73 12/09/16 17:55 71 12/09/16 17:53 24 12/09/16 17:53 71 139/85 12/09/16 17:52 98.6 12/09/16 17:50 78 12/09/16 17:50 75 12/09/16 17:45 80 12/09/16 17:45 81 12/09/16 17:40 77 12/09/16 17:35 85 12/09/16 17:35 84 12/09/16 17:30 82 12/09/16 17:30 81 12/09/16 17:25 77 12/09/16 17:25 78 12/09/16 17:20 78 12/09/16 17:20 78 12/09/16 17:15 77 12/09/16 17:15 76 12/09/16 17:10 76 12/09/16 17:10 70 12/09/16 17:05 71 12/09/16 17:05 70 12/09/16 17:00 73 12/09/16 17:00 74 12/09/16 16:55 81 12/09/16 16:55 81 12/09/16 16:50 80 12/09/16 16:50 80 12/09/16 16:45 66 12/09/16 16:45 68 12/09/16 16:40 62 12/09/16 16:40 62 12/09/16 16:38 99.1 12/09/16 16:37 27 12/09/16 16:35 70 135/80 12/09/16 16:35 65 12/09/16 16:30 86 12/09/16 16:15 78 12/09/16 16:10 81 12/09/16 16:05 82 12/09/16 16:00 83 12/09/16 15:55 80 12/09/16 15:50 80 12/09/16 15:45 79 12/09/16 15:40 79 12/09/16 15:35 87 12/09/16 15:30 80 12/09/16 15:25 78 12/09/16 15:20 87 12/09/16 14:40 75 12/09/16 14:39 20 12/09/16 14:38 98.6 12/09/16 14:38 76 131/85 12/09/16 14:35 75 12/09/16 14:30 81 12/09/16 13:40 90 Result Diagram: 12/09/16 [id number] A/P Assessment and Plan 1. Opioid addiction transition - continual monitoring 2. anxiety/depression - beginning abilify 5mg qDx7d, wellbutrin 150 qam, gabapentin as on record, visteril as on record, and doxepin 25 mg Re Jose M3 Dec 10, 2016 11:45
[2016-12-10] MEDS ORDERED: DOXEPIN HCL 25 MG CAP PO PRN (20:00)
[2016-12-10] MEDS: ACETAMINOPHEN 325 MG TAB PO PRN (20:00)
[2016-12-10] MEDS: buPROPion HCL 150 MG SUSTAINED RELEASE TAB PO SCH (20:25)
[2016-12-10] MEDS: ARIPiprazole 5 MG TAB PO SCH (20:27)
[2016-12-11] VITALS (7 sets, daily range): BP systolic 122–126; BP diastolic 76–89; PULSE 68–76; RESP 17–19; TEMP 97.4–98.4; O2SAT 97
[2016-12-11] MEDS: CALCIUM CARBONATE 500 MG CHEWABLE TAB CHEW PRN ×3 (00:38→06:34)
[2016-12-11] MEDS: cloNIDine HCL 0.1 MG TAB PO PRN ×2 (02:27→09:57)
[2016-12-11] MEDS: LACTATED RINGER'S 1000 ML INJ 1,000 ML IV SCH (05:15)
[2016-12-11] MEDS: ACETAMINOPHEN 325 MG TAB PO PRN (06:34)
[2016-12-11] MEDS: buPROPion HCL 150 MG SUSTAINED RELEASE TAB PO SCH (09:01)
[2016-12-11] MEDS: ARIPiprazole 5 MG TAB PO SCH (09:01)
[2016-12-11] MEDS: SODIUM CHLORIDE 0.9% FLUSH 10 ML FLUSH IV FLUSH SCH (09:01)
[2016-12-11] MEDS: GABAPENTIN 400 MG CAP PO SCH ×2 (09:01→12:53)
[2016-12-11] MEDS ORDERED: RANITIDINE HCL SYRUP 150 MG/10 ML UDC PO SCH (09:30)
[2016-12-11] MEDS ORDERED: FAMOTIDINE 20 MG TAB PO SCH (10:00)
--- NOTE | 2016-12-11 10:46 | PD.OB.ANTE ---
Subjective Diagnosis: (1) 33 weeks gestation of Diagnosis: Principal (2) Substance abuse Diagnosis: Principal (3) Substance abuse affecting in third trimester, antepartum Diagnosis: Principal (4) IV drug abuse complicating Diagnosis: Principal Interval History Patient taking a shower this morning. No new complaints. Plan today is transfer her to [email or web address] today. She states she has been [facility] before and was able to take similar medications as she is on now. She does note she had an episode of diarrhea this morning. Antepartum ROS: Denies: New complaints, Loss of fluid, Vaginal bleeding, movement normal Objective Vital Signs Vital Signs Date Time Temp Pulse Resp B/P Pulse Ox O2 Delivery O2 Flow Rate FiO2 12/11/16 08:07 76 122/89 12/11/16 08:00 97.4 19 97 12/11/16 06:37 68 126/87 12/10/16 23:11 67 120/72 12/10/16 19:52 24 12/10/16 19:45 98.3 12/10/16 19:45 74 118/72 12/10/16 16:04 84 120/70 12/10/16 16:03 98.2 20 12/10/16 14:17 98.3 12/10/16 14:17 100 12/10/16 14:16 81 20 114/63 Physical Exam GENERAL: Well-nourished, well-developed female lying in bed resting. CARDIOVASCULAR: Regular rate and rhythm without murmurs, gallops, or rubs. RESPIRATORY: Breath sounds equal bilaterally. No accessory muscle use. ABDOMEN/GI: Abdomen soft, non-tender. Fundus palpable above umbilicus, non- tender. CV: RRR, no murmurs RESP: lungs clear to auscultation GENITOURINARY: External Genitalia: deferred Uterine Contractions: absent FHT's: Category: 1 Baseline:1325 Reactive:y to 150 Variability: mod Decels: absent EXTREMITIES: No cyanosis or edema, non-tender, without signs of DVT. Assessment and Plan Problem List: (1) 33 weeks gestation of Status: Acute (2) Substance abuse Status: Acute (3) Substance abuse affecting in third trimester, antepartum Status: Acute (4) IV drug abuse complicating Status: Acute Assessment and Plan ASSESSMENT: 36 yo with intrauterine at 33 weeks and 4/7 days today Admitted for medical monitoring of substance withdrawal UDS + cocaine Not in labor Nausea vomiting and diarrhea improved, eating regular diet Most likely secondary to drug withdrawal, and symptoms have improved History of hypothyroidism Ultrasound with OB diagnostics for growth 12/09 - EDC 01/25/2017, AGA at 41% ile, normal EDVIN, BPP 01/19, BREECH, anterior grade 2-3 placenta, no previa. PLAN: Medically stable Will discharge today, to [facility] Will coordinate discharge medications with Dr. Concepcion CBC, CMP, urinalysis, TSH - mild anemia, mild elevation of bilirubin, mildly elevated liver enzyme. TSH wnl Current Regimen, likely to D/C with these meds: Vistaril 50 mg by mouth every 4 hours Clonidine 0.1 mg every 6 hours Gabapentin 400 mg by mouth 3 times a day Discussed with Dr. Villafuerte, attending, and Dr. Espinoza, PGY2 Marlen Taylor MD R1 Dec 11, 2016 10:46
--- NOTE | 2016-12-11 14:04 | HHI.DCPOC ---
Discharge Care Plan Diagnosis: (1) Substance abuse affecting in third trimester, antepartum Report Symptoms to Your Doctor -Temperature above 100.5 degrees -Redness, of incision or excessive or foul smelling drainage -Unusual pain or calf pain -Increased vaginal bleeding -Painful or difficulty urinating -Feelings of extreme sadness or anxiety after 2 weeks Goals to Promote Your Health * To prevent worsening of your condition and complications * To maintain your health at the optimal level Directions to Meet Your Goals Take your medications as prescribed Follow your dietary instruction Follow activity as directed Ensure plenty of rest for recovery Drink fluids for hydration Keep your appointments as scheduled Take your immunizations and boosters as scheduled If your symptoms worsen call your PCP, if no PCP go to Urgent Care Center or Emergency Room Smoking is Dangerous to Your Health. Avoid second hand smoke Call the 24-hour crisis hotline for domestic abuse at Sophia Espinoza MD R2 Dec 11, 2016 14:04
[2016-12-11] MEDS ORDERED: PREN1MIS19 (14:06)
--- NOTE | 2016-12-12 16:10 | MB ---
cc: RENEA SOLANO DATE OF CONSULTATION 12/12/16 DATE OF [address] Antonina Villafuerte. The patient was seen the , the and the with med students and Residents by me and discharged on December 11. INDICATION FOR CONSULTATION 33 week and active withdrawal from opioids, transferred from [facility] for symptoms of contractions also. [facility] and the goal was to have her detox at [facility] and transferred to [facility]. HISTORY OF PRESENT ILLNESS She is a 36-year-old white female 2, para 1-0-0-1, with her estimated due date January 25, 2017 who initially was at 33 and 2/7th weeks. She was undergoing detox at the [facility] and brought to the [facility] earlier that same day for medical clearance. She was having nausea, vomiting and then discharged from the main [facility]. She returned less than 24 hours later with increasing nausea, vomiting and watery diarrhea and there was the concern about decreased movement and uterine contractions. She was therefore taken to the obstetrical ED and hydration was initiated and I was asked to see her. Historically, her care had been in [place] with Dr. Hamilton, but she is in the process of moving to [facility] where her mom is located, and her mom sought and followed through with a [facility] Act. She was taking up to 40 mg of Dilaudid daily in multiple doses IV. She has occasionally used methamphetamine. She denied any use of alcohol or tobacco at this time. She had no other chronic or systemic illness and she has had no prior surgery. OBSTETRICAL HISTORY Obstetrical history was significant for a baby born in 2001 by spontaneous delivery not complicated by substance use. That child is presently residing with her mother at this time. PSYCHIATRIC HISTORY She has a history of profound depression, posttraumatic stress disorder and anxiety, and in the past had done very well on Wellbutrin and Abilify but due to an unstable lifestyle had lost continuity of care for her mental health and had not been on these in the recent years. At the time of her initial evaluation, surveillance was reassuring and initially contractions were stopped with hydration. I was consulted and initially she was given Vistaril, clonidine, gabapentin and then we discussed and resumed her Abilify and her bupropion. She did have a second episode of palpable and traceable uterine contractions which again was easily tocolysed with hydration and I believe some terbutaline. She was admitted on December 09 and discharged on December 11 and this dictation is December 12. During her hospitalization Fabiola's lab work showed that her hemoglobin was 10.1, platelets were 345. Chemistry showed minimally elevated AST at 51 and ALT of 55. Albumin was low at 2.0, total bilirubin was 1.3, creatinine was 0.68 and TSH was 1.04. Toxicology did show cocaine at that time but did not show opioids. The remainder of the toxicology is still pending at this time. Her urine had showed ketones, protein and trace leukocytes and a culture had not been ordered. It is apparent that she did not get serology or other obstetrical labs at this visit and they will be done on an outpatient basis. PHYSICAL EXAMINATION DIRECTED EXAMINATION: On physical she was initially quite dehydrated, anxious diaphoretic, tachycardia, had palpable contractions. Fundal height was consistent with dates and ultrasound was reassuring. The contractions that were noted as mentioned were ____. Her cervix was not open. EXTREMITIES: Showed some old tracks. She had no new phlebitis. No infection. No adenopathy. IMPRESSION At the time of my consultation and at that time of her discharge was that Fabiola was in the process of successfully withdrawing from opioids at court order and upon resolution of symptomatology could return to [facility] with her psychiatric medicine and the continued detox protocol at [facility] for women. Upon medical clearance there she can then go to [facility] and be followed up by me on an outpatient and by Dr. Vernon Cooper and the nurses on a residential basis. Renea Solano MD PPC/EO /3:38 PM /9:55 AM
[2016-12-14 09:09] LABS: BATH SALTS (MDPV) UR NEG (NEG); ECSTASY (MDMA) UR NEG (NEG); GABAPENTIN UR NEG (NEG); HEROIN (6-ACETYLMORPHINE) UR NEG (NEG); K2 SPICE UR NEG (NEG); OBMETHADONE UR NEG (NEG); OXYCODONE (PERCODAN) NEG (NEG); PHENCYCLIDINE URINE NEG (NEG)
[2016-12-14 09:10] LABS: HYDROMORPHONE U POS (NEG)
== END 2016-12-11 15:46 | disposition home or self-care (01) | DRG 781 ==
LOC: HOBED 12:26 → H2EA 13:28 → OBSVTOIN 13:28 → UNDOADMOB 13:31 → H2EA 13:31 → UNDODISOB 12-10 12:20 → INTOOBSV 12-11 08:29 → OBSVTOIN 12-11 08:29
PROVIDERS: ADMIT Obstetrics & Gynecology Maternal & Fetal Medicine; ATTEND Obstetrics & Gynecology Maternal & Fetal Medicine
DX: O99.323 Drug use complicating pregnancy, third trimester (principal); F14.23 Cocaine dependence with withdrawal; O99.283 Endocrine, nutritional and metabolic diseases complicating pregnancy, third trimester; E03.9 Hypothyroidism, unspecified; O99.343 Other mental disorders complicating pregnancy, third trimester; F41.9 Anxiety disorder, unspecified; Z3A.33 33 weeks gestation of pregnancy; F32.9 Major depressive disorder, single episode, unspecified
CPT/HCPCS: 76805; 80053; 80307; 81001; 84443; 85025; G0481; J2405; J3105; J7120

== ENCOUNTER 2017-01-04 09:19 | Emergency (ER) | payer MEDICAID ==
[~2017-01-04] VITALS: Ht 157.5 cm; Wt 70.3 kg
[2017-01-04] VITALS (7 sets, daily range): BP systolic 129; BP diastolic 87; PULSE 86–92
[~2017-01-04 09:19] MED LIST: CITA10TA4 PO; CITA20TA4 PO; FAMO20TA2 PO; PREN1CAP20 PO; PREN1MIS19; PROM25TA10 PO
[2017-01-04 10:35] LABS: BACTERIA, URINE RARE /hpf; BLOOD, URINE NEG (NEG); COMMENT (UR) CULT NOT INDICATED; CULTURE IF INDICATED CULT NOT INDICATED; GLUCOSE,URINE NEG (NEG); KETONE, URINE NEG (NEG); MUCUS URINE FEW /lpf (OCC); NITRITE,URINE NEG (NEG); PH, URINE 6.5 (5.0-8.5); SQUAMOUS EPITHELIAL CELL URINE 21 /hpf (0-5); URINE COLOR DARK-YELLOW (YELLW/STRAW)
--- NOTE | 2017-01-04 10:41 | PD ---
History of Present Illness Date Seen: Jan 04, 2017 History of Present Illness 36-year-old white female 37 weeks presents combining of abdominal pain, no bleeding, no leakage, heart rate tracing reactive, no regular contractions only minimal uterine irritability, but cervix is fingertip thick and high. Plan to patient be discharged home to bedrest increase oral fluids, use Tylenol liberally, heating pad or hot bath for comfort level, follow-up with her OB provider. Patient seen and evaluated with the family medicine residents. Corey Enrique II, MD Jan 04, 2017 10:41
--- NOTE | 2017-01-04 10:43 | PD ---
HPI Chief Complaint Abdominal Tightness/Pain Date Seen: Jan 04, 2017 Time Seen: 10:15 Travel History International Travel<30 Days: No Contact w/Intl Traveler<30Days: No Known Affected Area: No History of Present Illness HPI Patient is a 36 y/o at 37/0 who presents to OB Triage with abdominal tightness, pain in vaginal area and lower back x1 week. She states that the abdominal tightness comes and goes but has increased in duration to 30-40 seconds since yesterday. She admits to nausea but denies vomiting when she experiences the tightness. The pain in her vaginal area is a sharp pain that comes and goes. The patient describes the lower back pain as a dull pain that has been waking her up at night for the past two nights. Patient admits to loose bowel movements but denies black or bloody stools. She endorses increased frequency in urination for the past 1 1/2 weeks but denies burning/pain with urination. She denies blood in her urine. She denies fever/ chills. She denies vaginal bleeding, gush of fluid, fluid leakage and regular contractions. She endorses appropriate movement. She denies swelling of her hands and feet. Para: 3 : 1 : 1 History Past Medical History Narrative Medical Depression Anxiety Dilaudid use Obstetric History Obstetric History G1 vaginal, term G2 ; d&c 2006 G3 no complications; has not received regular care Past Surgical History Surgical History: No Previous Surgery Family History Family History: Negative Social History Alcohol Use: No Tobacco Use: No Substance Abuse: Yes (Dilaudid ) Allergies-Medications (Allergen,Severity, Reaction): Coded Allergies: No Known Allergies (Unverified , 01/04/17) Home Meds Active Scripts W/O Vit A W/ Fe Carbo (Prenate Mini 18-0.6-0.4-350 mg)1 Cap Cap1 Bottle PO DAILY #90 BOTTLE Prov:Akira Pelayo MD 12/28/16 Famotidine 20 Mg Tab20 Mg PO BID #60 TAB Ref 0 Prov:Akira Pelayo MD 12/28/16 Promethazine (Phenergan)25 Mg [id number] Mg PO DAILY PRN (NAUSEA OR VOMITING) #30 TAB Ref 0 Prov:Akira Pelayo MD 12/28/16 Citalopram 20 Mg Tab20 Mg PO DAILY #30 TAB Ref 3 Prov:Akira Pelayo MD 12/28/16 Citalopram 10 Mg Tab10 Mg PO DAILY #7 TAB Ref 0 Prov:Akira Pelayo MD 12/28/16 Reported Medications Vit W/ Ferrous Fumara (Pnv Plus Multivi 27-1 & 312 mg)1 Mis Mis 12/11/16 Discontinued Scripts W/O Vit A W/ Fe Carbo (Prenate Mini 18-0.6-0.4-350 mg)1 Cap Cap1 Bottle PO DAILY #90 BOTTLE Prov:Akira Pelayo MD 12/28/16 Famotidine 20 Mg Tab20 Mg PO BID #60 TAB Ref 0 Prov:Akira Pelayo MD 12/28/16 Promethazine (Phenergan)25 Mg [id number] Mg PO DAILY PRN (NAUSEA OR VOMITING) #30 TAB Ref 0 Prov:Akira Pelayo MD 12/28/16 Citalopram 20 Mg Tab20 Mg PO DAILY #30 TAB Ref 3 Prov:Akira Pelayo MD 12/28/16 Citalopram 10 Mg Tab10 Mg PO DAILY #7 TAB Ref 0 Prov:Akira Pelayo MD 12/28/16 Review of Systems General / Constitutional: No: Fever, Chills HENT: No: Headaches, Lightheadedness Cardiovascular: No: Chest Pain or Discomfort, Palpitations, Edema Respiratory: No: Short of Breath Gastrointestinal: Nausea, Diarrhea, Abdominal Pain, No: Vomiting, Constipation Genitourinary: Frequency, No: Hematuria Musculoskeletal: No: Weakness, Cramping, Edema Skin: No Rash Neurologic: No: Weakness Psychiatric: Anxiety, Depression Physical Exam Vital Signs Date Time Temp Pulse Resp B/P Pulse Ox O2 Delivery O2 Flow Rate FiO2 01/04/17 10:34 91 129/87 Narrative GENERAL: Well-nourished, well-developed patient. SKIN: Warm and dry. HEAD: Normocephalic and atraumatic. EYES: No scleral icterus. No injection or drainage. ENT: No nasal drainage noted. Mucous membranes pink. Airway patent. NECK: Supple, trachea midline. No JVD. CARDIOVASCULAR: Regular rate and rhythm without murmurs, gallops, or rubs. RESPIRATORY: Breath sounds equal bilaterally. No accessory muscle use. BREASTS: Bilateral exam showed no masses , no retractions, no nipple discharge. ABDOMEN/GI: Abdomen soft, non-tender, bowel sounds present, no rebound, no guarding Gravid to 37 weeks size GENITOURINARY: External Genitalia: intact and normal in appearance Cervix: deviated toward right Dilatation: 0-1 Effacement: 50% Station: -4 Presentation: vertex Membranes: intact Uterine Contractions: irregular FHT's: Category: 1 Baseline: 130 Reactive: reactive Variability: moderate Decels: none EXTREMITIES: No cyanosis or edema. BACK: Nontender without obvious deformity. No CVA tenderness. NEUROLOGICAL: Awake and alert. Motor and sensory grossly within normal limits. Five out of 5 muscle strength in all muscle groups. Normal speech. Data Data Vital Signs Reviewed: Yes Orders Vital Signs (Adult) .ON ADMISSION (01/04/17 09:59) ^ Labor Status (01/04/17 09:59) Urinalysis - C+S If Indicated (01/04/17 09:59) ^ Non Stress Test (01/04/17 09:59) ^ Hydration (01/04/17 09:59) Labs Laboratory Tests Test 01/04/17 09:40 Urine Color DARK-YELLOW Urine Turbidity HAZY Urine pH 6.5 Urine Specific [place] 1.031 Urine Protein 30 mg/dL Urine Glucose (UA) NEG mg/dL Urine Ketones NEG mg/dL Urine Occult Blood NEG Urine Nitrite NEG Urine Bilirubin NEG Urine Urobilinogen 2.0 MG/DL Urine Leukocyte Esterase SMALL Urine RBC LESS THAN 1 /hpf Urine WBC 2 /hpf Urine Squamous Epithelial 21 /hpf Cells Urine Amorphous Sediment RARE Urine Bacteria RARE /hpf Urine Mucus FEW /lpf Microscopic Urinalysis Comment CULT NOT INDICATED MDM Medical Record Reviewed: Yes Plan Patient is a 36 y/o at 37/0 who presents to OB Triage with abdominal tightness, pain in vaginal area and lower back x1 week. Abdominal Pain * Monitor vitals * Monitor labor status * Monitor heart rate with NST Dehydration * Possibly contributing to uterine irritability * UA -high specific gravity; dark in color * Encourage hydration d/w Dr. Enrique Diagnosis Diagnosis: Primary Impression: Abdominal pain Additional Impressions: 37 weeks gestation of Dehydration Disposition: DISCHARGE HOME Condition: Good LaBell,Mar MD R1 Jan 04, 2017 10:42
== END 2017-01-04 11:26 | disposition home or self-care (01) ==
LOC: HOBED 09:19
DX: O26.899 Other specified pregnancy related conditions, unspecified trimester (principal); R10.9 Unspecified abdominal pain; E86.0 Dehydration; M54.5 Low back pain; R35.0 Frequency of micturition; O99.343 Other mental disorders complicating pregnancy, third trimester; F32.9 Major depressive disorder, single episode, unspecified; F41.9 Anxiety disorder, unspecified; Z3A.37 37 weeks gestation of pregnancy
CPT/HCPCS: 59025; 81001

== ENCOUNTER 2017-01-07 11:04 | Emergency (ER) | payer MEDICAID ==
--- NOTE | 2017-01-07 12:32 | PD ---
HPI Chief Complaint Recent Hep C diagnosis Date Seen: Jan 07, 2017 Time Seen: 12:00 Travel History International Travel<30 Days: No Contact w/Intl Traveler<30Days: No Known Affected Area: No History of Present Illness HPI Patient is a 36 y/o at 37 weeks and 3 days who is referred to OB triage after being diagnosed with Hepatitis C. Patient has not complaints. She denies vaginal bleeding, fluid leakage and contractions. She reports appropriate movement. Para: 1 : 3 : 1 History Past Medical History Narrative Medical Depression Anxiety Dilaudid use Obstetric History Obstetric History G1 vaginal, term G2 ; d&c 2005 G3 no complications; has not received regular care Past Surgical History Narrative Surgical No Previous Surgery Family History Family History: Negative Social History Alcohol Use: No Tobacco Use: No Substance Abuse: Yes (Dilaudid ) Allergies-Medications (Allergen,Severity, Reaction): Coded Allergies: No Known Allergies (Unverified , 01/06/17) Home Meds Active Scripts W/O Vit A W/ Fe Carbo (Prenate Mini 18-0.6-0.4-350 mg)1 Cap Cap1 Bottle PO DAILY #90 BOTTLE Prov:Akira Pelayo MD 12/28/16 Famotidine 20 Mg Tab20 Mg PO BID #60 TAB Ref 0 Prov:Akira Pelayo MD 12/28/16 Promethazine (Phenergan)25 Mg [id number] Mg PO DAILY PRN (NAUSEA OR VOMITING) #30 TAB Ref 0 Prov:Akira Pelayo MD 12/28/16 Citalopram 20 Mg Tab20 Mg PO DAILY #30 TAB Ref 3 Prov:Akira Pelayo MD 12/28/16 Citalopram 10 Mg Tab10 Mg PO DAILY #7 TAB Ref 0 Prov:Akira Pelayo MD 12/28/16 Reported Medications Vit W/ Ferrous Fumara (Pnv Plus Multivi 27-1 & 312 mg)1 Mis Mis 12/11/16 Review of Systems General / Constitutional: No: Fever, Weight Gain, Chills, Other Eyes: No: Diploplia, Blurred Vision, Visual changes, Pain, Photophobia HENT: No: Headaches, Vertigo, Lightheadedness Cardiovascular: No: Irregular Rhythm, Chest Pain or Discomfort, Palpitations, Tachycardia, Syncope, Varicosities, Edema, Cyanosis Respiratory: No: Cough, Short of Breath, Other Gastrointestinal: No: Nausea, Vomiting, Diarrhea Genitourinary: No: Decreased Urinary Output, Oliguria Musculoskeletal: No: Limited ROM, Weakness, Cramping, Edema, Pain Skin: No Rash, No Itching, No Dryness, No Lumps, No Change in Pigmentation, No Change in Nails, No Alopecia, No Lesions Neurologic: No: Weakness, Dizziness, Syncope, Focal Abnormalities, Coordination Problem, Headache, Slurred Speech, Seizures Psychiatric: Anxiety, Depression, No: Suicidal Ideations, Homicidal Ideation Endocrine: No: Heat Intolerance, Cold Intolerance, Polydipsia, Polyuria, Other Physical Exam Narrative GENERAL: Well-nourished, well-developed patient. SKIN: Warm and dry. HEAD: Normocephalic and atraumatic. EYES: No scleral icterus. No injection or drainage. ENT: No nasal drainage noted. Mucous membranes pink. Airway patent. NECK: Supple, trachea midline. No JVD. CARDIOVASCULAR: Regular rate and rhythm without murmurs, gallops, or rubs. RESPIRATORY: Breath sounds equal bilaterally. No accessory muscle use. BREASTS: Bilateral exam showed no masses , no retractions, no nipple discharge. ABDOMEN/GI: Abdomen soft, non-tender, bowel sounds present, no rebound, no guarding Gravid to 37 weeks size FHT's: Category: Category 1 Baseline: 130 Reactive: + Variability: Moderate Decels: None EXTREMITIES: No cyanosis or edema. BACK: Nontender without obvious deformity. No CVA tenderness. NEUROLOGICAL: Awake and alert. Motor and sensory grossly within normal limits. Five out of 5 muscle strength in all muscle groups. Normal speech. Data Data Vital Signs Reviewed: Yes [facility] Medical Record Reviewed: Yes Plan Patient is a 36 y/o at 37 weeks and 3 days who is referred to OB triage after being diagnosed with Hepatitis C. Patient has not complaints. * FHR monitoring - reactive. * Contact GI for recommendations at this time. Diagnosis Diagnosis: Primary Impression: Hepatitis C Additional Impression: 37 weeks gestation of Disposition: 01 DISCHARGE HOME Condition: Good Mar Petersen MD R1 Jan 07, 2017 12:32
== END 2017-01-07 14:10 | disposition home or self-care (01) ==
LOC: HOBED 11:04
DX: O98.413 Viral hepatitis complicating pregnancy, third trimester (principal); B19.20 Unspecified viral hepatitis C without hepatic coma; O99.343 Other mental disorders complicating pregnancy, third trimester; F41.9 Anxiety disorder, unspecified; F32.9 Major depressive disorder, single episode, unspecified; Z3A.37 37 weeks gestation of pregnancy
CPT/HCPCS: 59025

== ENCOUNTER → 2017-01-07 | Outpatient (CLI) | payer MEDICAID | LOC: HPND 09:56 | PROVIDERS: ATTEND Obstetrics & Gynecology | DX: O09.523 Supervision of elderly multigravida, third trimester (principal); O09.33 Supervision of pregnancy with insufficient antenatal care, third trimester; O99.323 Drug use complicating pregnancy, third trimester | CPT/HCPCS: 76816 ==

== ENCOUNTER 2017-01-11 18:40 | Emergency (ER) | payer MEDICAID ==
--- NOTE | 2017-01-11 20:00 | PD ---
HPI Chief Complaint Contractions Date Seen: Jan 11, 2017 Travel History International Travel<30 Days: No Contact w/Intl Traveler<30Days: No Known Affected Area: No History of Present Illness HPI Patient 36-year-old white female 37 weeks [facility] and presents combining of contractions. No bleeding or leakage of fluid. heart rate tracing is reactive and she is torey every 2-3 minutes Para: 1 : 3 History Obstetric History Obstetric History One vaginal delivery, 1 early loss Social History Alcohol Use: No Tobacco Use: No Substance Abuse: No Allergies-Medications (Allergen,Severity, Reaction): Coded Allergies: No Known Allergies (Unverified , 01/06/17) Home Meds Active Scripts W/O Vit A W/ Fe Carbo (Prenate Mini 18-0.6-0.4-350 mg)1 Cap Cap1 Bottle PO DAILY #90 BOTTLE Prov:Akira Pelayo MD 12/28/16 Famotidine 20 Mg Tab20 Mg PO BID #60 TAB Ref 0 Prov:Akira Pelayo MD 12/28/16 Promethazine (Phenergan)25 Mg [id number] Mg PO DAILY PRN (NAUSEA OR VOMITING) #30 TAB Ref 0 Prov:Akira Pelayo MD 12/28/16 Citalopram 20 Mg Tab20 Mg PO DAILY #30 TAB Ref 3 Prov:Akira Pelayo MD 12/28/16 Citalopram 10 Mg Tab10 Mg PO DAILY #7 TAB Ref 0 Prov:Akira Pelayo MD 12/28/16 Reported Medications Vit W/ Ferrous Fumara (Pnv Plus Multivi 27-1 & 312 mg)1 Mis Mis 12/11/16 Review of Systems General / Constitutional: No: Fever, Weight Gain, Chills, Other Eyes: No: Diploplia, Blurred Vision, Visual changes, Pain, Photophobia HENT: No: Headaches, Vertigo, Lightheadedness Cardiovascular: No: Irregular Rhythm, Chest Pain or Discomfort, Palpitations, Tachycardia, Syncope, Varicosities, Edema, Cyanosis Respiratory: No: Cough, Short of Breath, Other Gastrointestinal: No: Nausea, Vomiting, Diarrhea Genitourinary: No: Decreased Urinary Output, Oliguria Musculoskeletal: No: Limited ROM, Weakness, Cramping, Edema, Pain Skin: No Rash, No Itching, No Dryness, No Lumps, No Change in Pigmentation, No Change in Nails, No Alopecia, No Lesions Neurologic: No: Weakness, Dizziness, Syncope, Focal Abnormalities, Coordination Problem, Headache, Slurred Speech, Seizures Psychiatric: No: Depression, Suicidal Ideations, Homicidal Ideation Endocrine: No: Heat Intolerance, Cold Intolerance, Polydipsia, Polyuria, Other Physical Exam Narrative GENERAL: Well-nourished, well-developed patient. SKIN: Warm and dry. HEAD: Normocephalic and atraumatic. EYES: No scleral icterus. No injection or drainage. ENT: No nasal drainage noted. Mucous membranes pink. Airway patent. NECK: Supple, trachea midline. No JVD. CARDIOVASCULAR: Regular rate and rhythm without murmurs, gallops, or rubs. RESPIRATORY: Breath sounds equal bilaterally. No accessory muscle use. BREASTS: Bilateral exam showed no masses , no retractions, no nipple discharge. ABDOMEN/GI: Abdomen soft, non-tender, bowel sounds present, no rebound, no guarding Gravid to [-37] weeks size Fundal Height: [-37] GENITOURINARY: External Genitalia: intact and normal in appearance BUS glands: [-] Cervix: [-] Dilatation: [-1] Effacement: [-] Thick Station: [-2] Presentation: [vtx-] Membranes: [intact ] Uterine Contractions: [q 2-3 min-] FHT's: Category: [1-] Baseline: [133-] Reactive: [yes-] Variability: [-mod] Decels: [-none] EXTREMITIES: No cyanosis or edema. BACK: Nontender without obvious deformity. No CVA tenderness. NEUROLOGICAL: Awake and alert. Motor and sensory grossly within normal limits. Five out of 5 muscle strength in all muscle groups. Normal speech. Data Data Labs Urine dip showed 1+ protein was negative MDM Interpretation(s) 36-year-old white female at 37 weeks presents clinically contractions. No bleeding or ruptured membranes. heart rate tracing is reactive and she is torey every 2-3 minutes however cervix is 1 cm very thick and long posterior and -2 vertex presentation. Blood pressures are borderline 130s over 90s high 80s Plan Plan to discharge home to bedrest at [facility], return for worsening pain leakage or bleeding. Diagnosis Diagnosis: Primary Impression: 37 weeks gestation of Additional Impression: False labor at or after 37 completed weeks of gestation, antepartum Disposition: 01 DISCHARGE HOME Condition: Stable Corey Enrique II, MD Jan 11, 2017 20:00
[2017-01-11] MEDS ORDERED: LACTATED RINGER'S 1000 ML INJ 1,000 ML IV SCH (20:25)
[2017-01-11] MEDS ORDERED: ONDANSETRON HCL 4 MG/2 ML VIAL IV ONE (20:30)
== END 2017-01-11 21:57 | disposition home or self-care (01) ==
LOC: HOBED 18:40
DX: O47.1 False labor at or after 37 completed weeks of gestation (principal); Z3A.37 37 weeks gestation of pregnancy
CPT/HCPCS: 59025; 96361; 96374

== ENCOUNTER 2018-03-10 14:17 | Inpatient (IN) ==
--- NOTE | 2018-03-10 15:09 | ED ---
History of Present Illness Primary Care Physician: No Primary Care Physician Chief Complaint: Contractions History of Present Illness: 37 year-old , IUP at 37.3 care complicated by: AMA, polysubstance abuse/IVDA/opioid addiction, Hepatitis C, Bipolar disorder, Schizophrenia, Anxiety, Depression, degenerative disk disease, late entry to care, size less than dates The patient presents complaining of the onset of painful contractions between 12 -3am last night. She reports they were irregular, occurring 1-2x per hour. She reports they have increased in intensity and frequency but are still irregular. There have been no alleviating factors and no attempted treatments. She denies any leaking of fluid or vaginal bleeding, but does report some light spotting. She reports good movement. She denies any other obstetrical complaints. She reports that she ran out of her Subutex and therefore used heroin yesterday because she was starting to feel very ill with symptoms that included shaking, sweating, nausea, and diarrhea. [employer]: , SAB x1, x2 PMH: Hepatitis C, schizophrenia, bipolar disorder, anxiety, depression, degenerative disc disease PSH: D&C FH: Rheumatoid arthritis, brain aneurysm SH: Drug addiction with heroin/opioid addiction and methamphetamine use, tobacco use Meds/allergies: As per HPI Weeks Gestation:: 37 Para: 2 : 4 Review of Systems All other systems reviewed negative except as stated in HPI Medications and Allergies Allergies Allergy/AdvReac Type Severity Reaction Status Date / Time No Known Allergies Allergy Verified 03/10/18 16:10 Home Medications Medication Instructions Recorded Confirmed Type aripiprazole [Abilify] 5 mg PO DAILY 03/10/18 03/10/18 History buprenorphine HCl 8 mg SUBLINGUAL BID 03/10/18 03/10/18 History fluoxetine [Prozac] 10 mg PO DAILY 03/10/18 03/10/18 History Exam Vital signs: Vital Signs 03/10/18 14:30 03/10/18 14:31 Temperature 97.9 F Pulse Rate 63 Respiratory Rate 18 Blood Pressure 134/83 Narrative: GENERAL: Well-nourished, well-developed patient. SKIN: Warm and dry. No rashes noted, numerous healed skin lesions. HEAD: Normocephalic and atraumatic. EYES: No scleral icterus. No injection or drainage. ENT: No nasal drainage noted. Mucous membranes pink. Airway patent. NECK: Supple, trachea midline. No JVD. CARDIOVASCULAR: Regular rate and rhythm without murmurs, gallops, or rubs. RESPIRATORY: Breath sounds equal bilaterally. No accessory muscle use. BREASTS: Bilateral exam showed no masses , no retractions, no nipple discharge. ABDOMEN/GI: Abdomen soft, non-tender, bowel sounds present, no rebound, no guarding Gravid GENITOURINARY: Normal egg bus. No cervical or vaginal masses noted. Physiologic discharge with some pink noted after examination. Grossly normal rugae. SVE /-1, mid/soft FHT's: See NST report below EXTREMITIES: No cyanosis or edema. BACK: Nontender without obvious deformity. No CVA tenderness. NEUROLOGICAL/Psychiatric: Awake and alert. Motor and sensory grossly within normal limits. Grossly normal 5 muscle strength in all muscle groups. Normal speech. Grossly normal memory/affect. Cranial nerves II through XII grossly intact. Grossly normal range of motion. NST report: Indications: IUP at 37, AMA, polysubstance abuse/IVDA/opioid addiction, Hepatitis C, Bipolar disorder, Schizophrenia, Anxiety, Depression, degenerative disk disease, late entry to care, size less than dates, recent IVDA use 1 day ago heart tones are in the 140s with moderate long-term variability, good accelerations, no decelerations noted. This is a reactive NST and category 1 heart rate tracing Follow-up: Continue monitoring Results - Labs CBC & Chem 7: 03/10/18 16:00 Assessment and Plan - Plan Assessment/plan: 1. IUP at 37.3 2. AMA 3. Polysubstance abuse/IVDA/opioid addiction: recent use yesterday because she ran out of her subutex. Patient is 3cm dilated and 90% effaced; she is torey painfully. Discussed with Dr. Benton, will admit to Dr. Benton and manage as per labor. Discussed in brief the risks of , risks/ indications of C/S. All of the patient's questions were answered and orders placed. Subutex 8mg SL TID ordered as per Dr. Benton request. 4. Preeclampsia without severe features as per records: BP elevated but not at treatable range, no symptoms at this time. Preeclampsia labs sent. 5. Hepatitis C 7. Bipolar disorder 8. Schizophrenia 9. Anxiety 10. Depression 11. Degenerative disk disease 12. Late entry to care 13. Size less than dates 14. GBS unknown: Rapid GBS by PCR sent Discharge Plan - Discharge Disposition Patient Disposition: 30 Still Patient - Physicians Team ED Provider: Belle Iglesias Primary Care Provider: Primary Care Elier,No
[2018-03-10] MEDS ORDERED: Measles/Mumps/Rubella Vaccine Inj 0.5 ML Vial SQ ONE (16:00)
[2018-03-10] MEDS ORDERED: Diphtheria/Tetanus/Pertussis Vaccine Inj 0.5 ML Syringe IM ONE (16:00)
[2018-03-10] MEDS ORDERED: Naloxone Inj 0.4 MG/ML Vial IV.PUSH PRN ×2 (16:02→19:04)
[2018-03-10] MEDS ORDERED: Sodium Chlor 0.9% Inj 500 ML IV.SIG PRN (16:02)
[2018-03-10] MEDS ORDERED: Sod Chloride 0.9% Inj 1,000 ML IV.CONT PRN (16:02)
[2018-03-10] MEDS ORDERED: Oxytocin 30 Units/500ml Premix 30 UNITS/500 ML BAG IV.SIG ONE (16:02)
[2018-03-10] MEDS ORDERED: Citric Acid/Sodium Citrate Liq 30 ML UDC PO SCH (16:15)
[2018-03-10 16:40] LABS: Baso # (Auto) 0.1 th/mm3 (0.0-0.2); Baso % (Auto) 0.8 % (0.0-2.0); Eos # (Auto) 0.1 th/mm3 (0.0-0.4); Eos % (Auto) 1.7 % (0.0-4.0); Hematocrit 38.8 % (35.0-46.0); Hemoglobin 12.9 gm/dL (11.6-15.3); Lymph # (Auto) 2.3 th/mm3 (1.0-4.8); Lymph % (Auto) 31.3 % (9.0-44.0); Mean Corpuscular HGB Conc 33.3 % (32.0-36.0); Mean Corpuscular Hemoglobin 26.7 pg (27.0-34.0); Mean Platelet Volume 8.8 fL (7.0-11.0); Mono # (Auto) 0.3 th/mm3 (0.0-0.9); Mono % (Auto) 3.9 % (0.0-8.0); Neut # (Auto) 4.6 th/mm3 (1.8-7.7); Neut % (Auto) 62.3 % (16.0-70.0); Platelet Count 289 th/mm3 (150-450); Red Blood Count 4.85 mil/mm3 (4.00-5.30); Red Cell Distribution Width 16.3 % (11.6-17.2); White Blood Count 7.4 th/mm3 (4.0-11.0)
[2018-03-10] MEDS ORDERED: Labetalol HCl Inj 100 MG/20 ML Vial ONE (16:41)
[2018-03-10] MEDS ORDERED: fentaNYL 2MCG-Bupiv 0.125% Epi 150 ML EPIDURAL ONE (16:53)
[2018-03-10] MEDS ORDERED: Lidocaaine 1.5%/Epinephrine 1:200,000 PF Inj 5 ML Amp ONE (16:59)
[2018-03-10] MEDS ORDERED: Lidocaine PF 1% Inj 10 ML Amp ONE (17:00)
--- NOTE | 2018-03-10 17:00 | P.PN ---
Subjective Interval history: OBHG Asked by Dr. Benton to perform AROM. Patient with contractions that have increased in intensity and frequency since arrival. FHR reassuring, category 1. SVE 4/90/-1, AROM with first attempt during contraction with head well applied to cervix. Moderate/particulate meconium needed. Patient to receive epidural shortly. Physical Exam Vital signs: Vital Signs 03/10/18 14:30 03/10/18 14:31 03/10/18 16:08 Temperature 97.9 F 97.8 F Pulse Rate 63 Respiratory Rate 18 Blood Pressure 134/83 03/10/18 16:10 03/10/18 16:28 03/10/18 16:35 Temperature Pulse Rate 62 66 72 Respiratory Rate 18 Blood Pressure 142/113 H 158/96 H 154/120 H 03/10/18 16:45 03/10/18 16:50 Temperature Pulse Rate 63 61 Respiratory Rate Blood Pressure Intake & Output 03/09/18 03/10/18 03/10/18 18:59 06:59 18:59 Weight 66.621 kg Results - Labs CBC & Chem 7: 03/10/18 16:00 Laboratory Results - last 24 hr 03/10/18 03/10/18 16:00 16:00 WBC 7.4 RBC 4.85 Hgb 12.9 Hct 38.8 MCV 80.0 MCH 26.7 L MCHC 33.3 RDW 16.3 Plt Count 289 MPV 8.8 Neut % (Auto) 62.3 Lymph % (Auto) 31.3 Addison % (Auto) 3.9 Eos % (Auto) 1.7 Baso % (Auto) 0.8 Neut # (Auto) 4.6 Lymph # (Auto) 2.3 [place]ison # (Auto) 0.3 Eos # (Auto) 0.1 Baso # (Auto) 0.1 WBC Differential . Differential Comment Auto diff final Blood Type Cancelled Blood Type Recheck Cancelled
[2018-03-10 17:56] LABS: Hepatitits B Surface Antigen Nonreactive (Nonreactive)
[2018-03-10 18:14] LABS: Hepatitis A IgM Antibody Nonreactive (Nonreactive)
[2018-03-10] MEDS ORDERED: Labetalol HCl Inj 100 MG/20 ML Vial IV.SIG ONE (18:30)
[2018-03-10 18:34] LABS: Amphetamine Urine With Conf Neg (Neg); Benzodiazepine Urine With Conf Neg (Neg)
[2018-03-10 18:43] LABS: Bilirubin,Urine Negative (Negative); Clarity,Urine Clear (Clear); Color,Urine Yellow (Yellw/Straw); Glucose,Urine (UA) Negative (Negative); Leukocyte Esterase,Urine Negative (Negative); Nitrite,Urine Negative (Negative); Specific Gravity,Urine 1.006 (1.002-1.035); Squamous Epithelial Cell,Urine <1 /hpf (0-5)
[2018-03-10] MEDS ORDERED: Zolpidem Tartrate 5 MG Tablet PO PRN (19:04)
[2018-03-10] MEDS ORDERED: Witch Hazel 50%/Glyderin 12.5% 40 Pad Jar RECTAL PRN (19:04)
[2018-03-10] MEDS ORDERED: Oxytocin 30 Units/500ml Premix 30 UNITS/500 ML BAG IV.CONT PRN (19:04)
[2018-03-10] MEDS ORDERED: Bisacodyl 10 MG Supp RECTAL PRN (19:04)
[2018-03-10] MEDS ORDERED: Benzocaine 20% Top Spray 60 ML Can TOPICAL PRN (19:04)
--- NOTE | 2018-03-10 19:04 | P.OBDELI ---
Weeks Gestation: 37 Patient Started Active Labor: Yes Medical Induction of Labor: No Artificial Rupture of Membrane: Yes Anesthesia: Epidural Episiotomy: none Vaginal Delivery: Normal Presentation: Occiput anterior Nuchal Cord: x1 Delayed Cord Clamping (45 sec): No Placenta: Spontaneous delivery, Intact, 3 vessel cord, Cord pH, Other (THick particulate old and new meconium) Laceration: None Estimated blood loss (mL): 200 Infant: Female Female A Infant Delivery Date: 03/10/18 Infant Delivery Time: 19:02 Additional Information: weight and pending NICU team in room. Resuscitation underway. Heroin, subutex, methamphetamine use in last week. Mom's BP very labile. Cord gas also pending.
[2018-03-10] MEDS ORDERED: fentaNYL Citrate Inj 100 MCG/2 ML Ampul EPIDURAL ONE (19:16)
[2018-03-10] MEDS ORDERED: fentaNYL 2MCG-Bupiv 0.125% Epi 150 ML EPIDURAL PRN (19:16)
[2018-03-10 19:41] LABS: Cord Arterial Blood HCO3 25.6
[2018-03-10] MEDS ORDERED: Senna/Docusate Sodium 8.6/50 MG Tablet PO SCH (21:00)
[2018-03-10 22:56] VITALS: RESP 18
[2018-03-11] MEDS: Acetaminophen 325 MG Tablet PO PRN ×3 (03:21→14:01)
[2018-03-11 07:40] VITALS: BP 112/81; PULSE 55; TEMP 97.9
--- NOTE | 2018-03-11 08:24 | P.PNOB ---
Subjective Post day: 1 Interval history: c/o RLS, due for sobutex, baby in NICU, admitted to recent heroin use Objective Vital Signs/I&O: Vital Signs 03/10/18 14:30 03/10/18 14:31 03/10/18 16:08 Temperature 97.9 F 97.8 F Pulse Rate 63 Respiratory Rate 18 Blood Pressure 134/83 03/10/18 16:10 03/10/18 16:28 03/10/18 16:35 Temperature Pulse Rate 62 66 72 Respiratory Rate 18 Blood Pressure 142/113 H 158/96 H 154/120 H 03/10/18 16:45 03/10/18 16:50 03/10/18 17:08 Temperature Pulse Rate 63 61 68 Respiratory Rate Blood Pressure 159/92 H 03/10/18 17:11 03/10/18 17:12 03/10/18 17:15 Temperature Pulse Rate 76 55 L Respiratory Rate 18 Blood Pressure 159/75 H 155/88 H 03/10/18 17:20 03/10/18 17:26 03/10/18 17:50 Temperature Pulse Rate 62 64 63 Respiratory Rate 18 Blood Pressure 162/73 H 143/90 H 142/87 H 03/10/18 17:55 03/10/18 18:00 03/10/18 18:04 Temperature 97.6 F Pulse Rate 62 71 Respiratory Rate Blood Pressure 148/105 H 03/10/18 18:05 03/10/18 18:10 03/10/18 18:16 Temperature Pulse Rate 66 65 60 Respiratory Rate Blood Pressure 152/80 H 03/10/18 18:25 03/10/18 18:30 03/10/18 18:31 Temperature Pulse Rate 64 58 L 58 L Respiratory Rate Blood Pressure 152/71 H 03/10/18 18:40 03/10/18 19:04 03/10/18 19:06 Temperature Pulse Rate 60 99 H 84 Respiratory Rate 18 Blood Pressure 163/117 H 150/115 H 03/10/18 19:07 03/10/18 19:15 03/10/18 19:35 Temperature 98.4 F Pulse Rate 76 Respiratory Rate 20 Blood Pressure 148/85 H 03/10/18 19:36 03/10/18 19:42 03/10/18 21:57 Temperature 99.0 F Pulse Rate 57 L 60 Respiratory Rate 18 Blood Pressure 185/93 H 161/88 H 150/93 H 03/11/18 03:23 03/11/18 07:39 Temperature 97.6 F 97.9 F Pulse Rate 55 L Respiratory Rate 18 Blood Pressure 112/81 Intake & Output 03/10/18 03/11/18 03/11/18 18:59 06:59 18:59 Weight 66.621 kg Result Diagrams: 03/10/18 16:00 Objective Remarks: GENERAL: Well-nourished, well-developed patient. CARDIOVASCULAR: Regular rate and rhythm without murmurs, gallops, or rubs. RESPIRATORY: Breath sounds equal bilaterally. No accessory muscle use. ABDOMEN/GI: Abdomen soft, non-tender. Fundus: Firm, non-tender at umbilicus. GENITOURINARY: Light to moderate bleeding. EXTREMITIES: No cyanosis or edema, non-tender, without signs of DVT. Medications and IVs: Active Medications Acetaminophen (Tylenol) 650 mg PO Q4H PRN PRN Reason: PAIN SCALE 1 TO 2 Last Admin: 03/11/18 08:00 Dose: 650 mg Al Hydroxide/Mg Hydroxide (Milk Of Magnesia Liq) 30 ml PO Q12H PRN PRN Reason: Mild Constipation Aripiprazole (Abilify) 5 mg PO DAILY [facility] Benzocaine (Americaine 20% [place]) 1 spray TOPICAL Q4H PRN PRN Reason: For Perineum Discomfort Bisacodyl (Dulcolax Supp) 10 mg RECTAL DAILY PRN PRN Reason: SEVERE CONSITIPATION Buprenorphine HCl (Sublingual) 8 mg SL Q8H [facility] Last Admin: 03/11/18 08:00 Dose: 8 mg Citric Acid/Sodium Citrate (Sodium Citrate/Citric Acid Liq) 30 ml PO NEUROLOGY DIRECTOR [facility] Stop: 03/14/18 16:14 Ephedrine Sulfate (Ephedrine/Ns Syringe) 10 mg IV.PUSH UNSCH PRN PRN Reason: SEE LABEL COMMENTS Stop: 03/11/18 19:16 Fluoxetine HCl (Prozac) 10 mg PO DAILY [facility] Lactated Ringer's (Lr 1000 Ml Inj) 1,000 mls @ 125 mls/hr IV.CONT .Q8H [facility] Last Admin: 03/11/18 05:46 Dose: Not Given Lactated Ringer's (Lr 1000 Ml Inj) 1,000 mls @ 3,000 mls/hr IV.SIG UNSCH PRN PRN Reason: compromise or epidural Last Admin: 03/10/18 17:20 Dose: 3,000 mls/hr Sodium Chloride (Ns Inj) 500 mls @ 1,000 mls/hr IV.SIG UNSCH PRN PRN Reason: SEE LABEL COMMENTS Sodium Chloride (Ns Inj) 1,000 mls @ 100 mls/hr IV.CONT .Q10H PRN PRN Reason: SEE LABEL COMMENTS Oxytocin (Pitocin 30 Units/Ns 500 Ml Premix) 30 units in 500 mls @ 100 mls/hr IV.CONT UNSCH PRN PRN Reason: Heavy bleeding Last Admin: 03/10/18 20:55 Dose: 100 mls/hr Fentanyl/Bupivacaine/Sodium Chlor (Fentanyl 2 Mcg-Bupiv 0.125% Epi) 150 mls @ 12 mls/hr EPIDURAL PRN PRN PRN Reason: for Labor Pain Ibuprofen (Motrin) 800 mg PO Q8H PRN PRN Reason: For Cramping Last Admin: 03/11/18 05:19 Dose: 800 mg Lactulose (Lactulose Liq) 30 ml PO DAILY PRN PRN Reason: SEVERE CONSITIPATION Lidocaine HCl (Xylocaine 1% Inj) 0.1 ml I-DERMAL PRN PRN PRN Reason: For IV start Stop: 03/13/18 16:01 Lidocaine HCl (Xylocaine 1% Inj) 10 ml INFILTRATN PRN PRN PRN Reason: For episiotomy repair Stop: 03/12/18 16:01 Mineral Oil (Muri-Lube Oil) 10 ml TOPICAL PRN PRN PRN Reason: PRN perineal massage Miscellaneous Information (Misc Information) 1 each OTHER UNSCH PRN PRN Reason: SEE LABEL COMMENTS Stop: 03/11/18 19:16 Miscellaneous Information (Misc Information) 1 each OTHER UNSCH PRN PRN Reason: SEE LABEL COMMENTS Stop: 03/11/18 19:16 Naloxone HCl (Narcan Inj) 0.1 mg IV.PUSH Q2M PRN PRN Reason: for opiate reversal Naloxone HCl (Narcan Inj) 0.1 mg IV.PUSH Q2M PRN PRN Reason: for opiate reversal Ondansetron HCl (Zofran Odt) 4 mg PO Q6H PRN PRN Reason: NAUSEA OR VOMITING Last Admin: 03/10/18 20:38 Dose: 4 mg Senna/Docusate Sodium (Davina-Colace) 1 tab PO BID [facility] Last Admin: 03/10/18 21:03 Dose: Not Given Sennosides (Senokot) 17.2 mg PO Q12H PRN PRN Reason: Moderate Constipation Sodium Chloride (Ns Flush) 2 ml IV.FLUSH BID [facility] Last Admin: 03/10/18 20:55 Dose: 2 ml Sodium Chloride (Ns Flush) 2 ml IV.FLUSH PRN PRN PRN Reason: FLUSH AFTER USING IV ACCESS Witch Nilsa/Glycerin (Tucks Pads) 1 applicatio RECTAL QID PRN PRN Reason: HEMORRHOIDS Zolpidem Tartrate (Ambien) 5 mg PO HS PRN PRN Reason: SLEEP Last Admin: 03/10/18 22:35 Dose: 5 mg Assessment and Plan - Diagnosis (1) Vaginal delivery Code(s): O80 - Encounter for full-term uncomplicated delivery Status: Acute (2) Substance use disorder Code(s): F19.90 - Other psychoactive substance use, unspecified, uncomplicated Status: Acute (3) Bipolar disorder Code(s): F31.9 - Bipolar disorder, unspecified Status: Acute - Plan Assessment/plan: 1. IUP at 37.3 s/p PPD #1 2. AMA 3. Polysubstance abuse/IVDA/opioid addiction: recent use yesterday because she ran out of her subutex. Subutex 8mg SL TID ordered as per Dr. Benton request. 4. Hepatitis C 5. Bipolar disorder 6. Schizophrenia 7. Anxiety 8. Depression 9. Degenerative disk disease 10. Late entry to care 11. Size less than dates 12. GBS unknown: Rapid GBS by PCR sent Discharge Planning: routine, DCF notified - Attending Attestation pt seen by myself and Dr Benton (3) Bipolar disorder Qualifiers: Active/Remission status: currently active Current bipolar episode type: depressed Current episode severity: moderate Qualified Code(s): F31.32 - Bipolar disorder, current episode depressed, moderate
[2018-03-11] MEDS ORDERED: ARIPiprazole 5 MG Tablet PO SCH (09:00)
[2018-03-11] MEDS ORDERED: FLUoxetine 10 MG Capsule PO SCH (09:00)
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
== END 2018-03-11 19:30 | disposition home or self-care (01) ==
LOC: HOBED 14:17 → H2E 15:50 → H1EA 19:52
PROVIDERS: ADMIT Obstetrics & Gynecology; ATTEND Obstetrics & Gynecology